=== PATIENT | male | born 1955 | race Caucasian/White ===

== ENCOUNTER 2017-03-19 11:27 | Emergency (ER) | payer OTHER ==
[~2017-03-19] VITALS: Ht 182.9 cm; Wt 106.6 kg
[~2017-03-19 11:27] MED LIST: ALBU90OI INH; ALBU90OI61 INH; AMLO10 PO; AMLO5 PO; ASPI81CH PO; ATOR40TA PO; BENZ100A PO; BIOTIN5000 MCG PO; CHOL10002 PO; CLON.1 PO; CLOP75 PO; CYAN500 PO; CYCL10 PO; DOXA1 PO; DOXA4 PO; ERYT.5TO OU; Esgic Tablet1 EACH PO; FAMO20 PO; FEBU40TA PO; FURO40 PO; GABA600; GABA600 PO; HYDACE10B PO; HYDCHL12.5 PO; HYDMOR2 PO; Hair, Skin & N1 EACH PO; IBUP400 PO; INDO75CR PO; LABE200 PO; LISI20 PO; LISI5 PO; MECL25 PO; META800 PO; METO100ER PO; METPRE4DP PO; NAPR500 PO; NEBI10 PO; NITR.4SL SL; Nifedical Xl60 MG PO; ONDA4 PO; ONDA4ODT; OXYACE5T PO; Omeprazole20 M1 PO; PRAM.5 PO; PRED20 PO; PRED5 PO; PREG75 PO; PROACE100 PO; Poly-Iron150 MG PO; Robaxin-750750 MG PO; Roxicodone5 MG PO; SIMV40 PO; SULTRIDS PO; TIOT18 INH; Ventolin5 MG/1 ML INH
[2017-03-19 12:02] LABS: BASOPHILS ABSOLUTE AUTO 0.04 K/mm3 (0.00-0.23); BASOPHILS PERCENT AUTO 0 % (0-2); EOSINOPHILS PERCENT AUTO 2 % (0-6); Hematocrit 37.3 % (37.0-53.0); IMMATURE GRAN ABSOLUTE AUTO 0.04 K/mm3 (0.00-0.10); IMMATURE GRAN PERCENT AUTO 0 % (0-1); LYMPHOCYTES ABSOLUTE AUTO 1.66 K/mm3 (0.84-5.20); LYMPHOCYTES PERCENT AUTO 18 % (21-46); MONOCYTES ABSOLUTE AUTO 0.56 K/mm3 (0.16-1.47); MONOCYTES PERCENT AUTO 6 % (4-13); Mean Corpuscular HGB 26.7 pg (26.0-34.0); Mean Corpuscular HGB Conc 32.2 g/dL (31.5-36.5); Mean Corpuscular Volume 83 fL (80-100); Mean Platelet Volume 9.7 fL (9.1-12.4); NEUTROPHILS ABSOLUTE AUTO 6.92 K/mm3 (1.96-9.15); NEUTROPHILS PERCENT AUTO 74 % (41-73); Platelet Count 227 K/mm3 (150-400); RDW Coefficient Variation 17.9 % (11.7-14.2); RDW Standard Deviation 54.9 fL (35.1-46.3); Red Blood Cell Count 4.49 M/mm3 (4.30-5.90); White Blood Cell Count 9.42 K/mm3 (4.00-11.30)
[2017-03-19 12:23] LABS: Alanine Aminotransfer (ALT/SGP 27 U/L (12-78); Albumin, Blood 3.9 g/dL (3.4-5.0); Albumin/Globulin Ratio 1.1 (0.8-1.8); Alk Phos 152 U/L (50-136); Anion Gap 5 mmol/L (6-16); Aspartate Aminotrans (AST/SGOT 21 U/L (12-37); Bilirubin, Total 0.4 mg/dL (0.1-1.0); Blood Urea Nitrogen 22 mg/dL (8-24); Bun/Creatinine Ratio 18.3 (12.0-20.0); CO2, Blood 26 mmol/L (21-32); Calcium, Blood 8.6 mg/dL (8.5-10.1); Chloride, Blood 110 mmol/L (98-108); Globulin, Blood 3.6 g/dL (2.2-4.0); Glomerular Filtration Rate >60 (60-); Glucose, Blood 98 mg/dL (70-99); Potassium, Blood 4.5 mmol/L (3.5-5.5); Sodium, Blood 141 mmol/L (136-145); Total Protein, Blood 7.5 g/dL (6.4-8.2); Troponin I <0.015 ng/mL (0.000-0.040)
[2017-03-19] MEDS ORDERED: FURO40 PO (12:53)
[2017-03-19] MEDS ORDERED: POTCHL10ER PO (12:54)
[2017-03-19] MEDS ORDERED: ERGO400 PO (12:55)
[2018-01-11] MEDS ORDERED: METO100ER PO (20:44)
[2018-01-11] MEDS ORDERED: PRAM.125 PO (20:44)
[2018-01-11] MEDS ORDERED: Omeprazole20 M1 PO (20:44)
[2018-01-11] MEDS ORDERED: PANT40 PO (20:44)
[2018-01-11] MEDS ORDERED: CLOP75 PO (20:44)
[2018-01-11] MEDS ORDERED: TIOT18 INH (20:45)
[2018-01-11] MEDS ORDERED: PRAM.5 PO (20:45)
[2018-01-11] MEDS ORDERED: GABA100 PO (20:46)
[2018-01-11] MEDS ORDERED: LORA2 PO (21:19)
[2018-01-14] MEDS ORDERED: ROPI.25 PO (13:22)
== END 2017-03-19 13:24 | disposition home or self-care (01) ==
LOC: ER 11:27
PROVIDERS: Physician Assistant
DX: R07.9 Chest pain, unspecified (principal); I25.2 Old myocardial infarction; Z90.5 Acquired absence of kidney; Z88.5 Allergy status to narcotic agent; Z88.8 Allergy status to other drugs, medicaments and biological substances; Z79.899 Other long term (current) drug therapy
CPT/HCPCS: 71045; 80053; 83880; 84484; 85025; 93005; 93010; 96374; 99284; J2405

== ENCOUNTER 2017-04-03 09:27 | Emergency (ER) | payer OTHER ==
[~2017-04-03] VITALS: Ht 182.9 cm; Wt 111.1 kg
[~2017-04-03 09:27] MED LIST changes: +ERGO400 PO; +POTCHL10ER PO
[2017-04-03] MEDS ORDERED: METO100ER PO ×2 (10:14→12:57)
[2017-04-03 10:26] LABS: Alanine Aminotransfer (ALT/SGP 25 U/L (12-78); Albumin, Blood 3.9 g/dL (3.4-5.0); Albumin/Globulin Ratio 1.1 (0.8-1.8); Alk Phos 159 U/L (50-136); Anion Gap 9 mmol/L (6-16); Aspartate Aminotrans (AST/SGOT 22 U/L (12-37); Bilirubin, Total 0.3 mg/dL (0.1-1.0); Blood Urea Nitrogen 23 mg/dL (8-24); Bun/Creatinine Ratio 19.7 (12.0-20.0); CO2, Blood 25 mmol/L (21-32); Calcium, Blood 8.9 mg/dL (8.5-10.1); Chloride, Blood 108 mmol/L (98-108); Creatinine, Blood 1.17 mg/dL (0.60-1.20); Globulin, Blood 3.5 g/dL (2.2-4.0); Glomerular Filtration Rate >60 (60-); Glucose, Blood 117 mg/dL (70-99); Magnesium, Blood 2.1 mg/dL (1.6-2.4); Potassium, Blood 3.8 mmol/L (3.5-5.5); Sodium, Blood 142 mmol/L (136-145); Total Protein, Blood 7.4 g/dL (6.4-8.2); Troponin I <0.015 ng/mL (0.000-0.040)
[2017-04-03 10:38] LABS: International Normalized Ratio 1.07; Prothrombin Time Results 11.1 Sec (9.7-11.5)
[2017-04-03 11:24] LABS: Source, Urine Catheter
[2017-04-03 11:44] LABS: Bilirubin, Urine Neg (Neg); Blood, Urine Neg (Neg); Glucose Qualitative, Urine Neg (Neg); Ketones, Urine Neg (Neg); Leukocyte Esterase, Urine Neg (Neg); Nitrite, Urine Neg (Neg); Protein, Urine Neg (Neg); Specific Gravity, Urine 1.015 (1.003-1.022); Urobilinogen, Urine NORM (Normal)
[2017-04-03 12:19] LABS: Appearance, Urine Clear (Clear); Color, Urine Yellow (P-Yellow)
[2017-04-03 12:19] LABS: BASOPHILS ABSOLUTE AUTO 0.05 K/mm3 (0.00-0.23); BASOPHILS PERCENT AUTO 1 % (0-2); EOSINOPHILS PERCENT AUTO 3 % (0-6); Hematocrit 38.3 % (37.0-53.0); Hemoglobin 12.2 g/dL (13.5-17.5); IMMATURE GRAN ABSOLUTE AUTO 0.02 K/mm3 (0.00-0.10); IMMATURE GRAN PERCENT AUTO 0 % (0-1); LYMPHOCYTES ABSOLUTE AUTO 1.73 K/mm3 (0.84-5.20); LYMPHOCYTES PERCENT AUTO 22 % (21-46); MONOCYTES ABSOLUTE AUTO 0.62 K/mm3 (0.16-1.47); MONOCYTES PERCENT AUTO 8 % (4-13); Mean Corpuscular HGB 26.8 pg (26.0-34.0); Mean Corpuscular HGB Conc 31.9 g/dL (31.5-36.5); Mean Corpuscular Volume 84 fL (80-100); Mean Platelet Volume 9.9 fL (9.1-12.4); NEUTROPHILS ABSOLUTE AUTO 5.43 K/mm3 (1.96-9.15); NEUTROPHILS PERCENT AUTO 68 % (41-73); Platelet Count 212 K/mm3 (150-400); RDW Coefficient Variation 17.3 % (11.7-14.2); RDW Standard Deviation 53.7 fL (35.1-46.3); Red Blood Cell Count 4.55 M/mm3 (4.30-5.90); White Blood Cell Count 8.05 K/mm3 (4.00-11.30)
[2017-04-03] MEDS ORDERED: AMLO10 PO (12:57)
[2017-04-03] MEDS ORDERED: METO2.5 PO (12:57)
[2017-04-03] MEDS ORDERED: LOSARTAN POTAS100 MG PO (12:57)
[2018-01-11] MEDS ORDERED: CLOP75 PO (20:44)
[2018-01-11] MEDS ORDERED: Omeprazole20 M1 PO (20:44)
[2018-01-11] MEDS ORDERED: PRAM.125 PO (20:44)
[2018-01-11] MEDS ORDERED: PANT40 PO (20:44)
[2018-01-11] MEDS ORDERED: METO100ER PO (20:44)
[2018-01-11] MEDS ORDERED: TIOT18 INH (20:45)
[2018-01-11] MEDS ORDERED: PRAM.5 PO (20:45)
[2018-01-11] MEDS ORDERED: GABA100 PO (20:46)
[2018-01-11] MEDS ORDERED: LORA2 PO (21:19)
[2018-01-14] MEDS ORDERED: ROPI.25 PO (13:22)
== END 2017-04-03 13:29 | disposition home or self-care (01) ==
LOC: ER 09:27
PROVIDERS: Emergency Medicine
DX: I13.0 Hypertensive heart and chronic kidney disease with heart failure and stage 1 through stage 4 chronic kidney disease, or unspecified chronic kidney disease (principal); E11.22 Type 2 diabetes mellitus with diabetic chronic kidney disease; N18.9 Chronic kidney disease, unspecified; I50.9 Heart failure, unspecified; R60.0 Localized edema; Z88.5 Allergy status to narcotic agent; Z88.8 Allergy status to other drugs, medicaments and biological substances; Z79.899 Other long term (current) drug therapy; K21.9 Gastro-esophageal reflux disease without esophagitis; F17.210 Nicotine dependence, cigarettes, uncomplicated
CPT/HCPCS: 36415; 71046; 80053; 81003; 83735; 83880; 84484; 85025; 85610; 93005; 93010; 96374; 99284; J1940

== ENCOUNTER → 2017-04-24 | Outpatient (CLI) | payer OTHER ==
[~2017-04-24] MED LIST changes: +GABA100 PO; +LORA2 PO; +LOSARTAN POTAS100 MG PO; +METO2.5 PO; +PANT40 PO; +PRAM.125 PO; +ROPI.25 PO
[2017-04-24 16:23] LABS: Protein, Urine Random 11.8 mg/dL (0.0-11.9)
[2017-04-24 16:28] LABS: Creatinine, Urine Random 50.8 mg/dL (27.00-270.00); Protein/Creat Ratio, Ur Random 0.2
== END | disposition home or self-care (01) ==
LOC: OLS 13:46
PROVIDERS: Internal Medicine
DX: N28.9 Disorder of kidney and ureter, unspecified (principal)
CPT/HCPCS: 82570; 84156

== ENCOUNTER → 2017-05-24 | Outpatient (CLI) | payer OTHER ==
[~2017-05-24] MED LIST changes: -GABA100 PO; -LORA2 PO; -PANT40 PO; -PRAM.125 PO; -ROPI.25 PO
[2017-05-24 12:41] LABS: BASOPHILS ABSOLUTE AUTO 0.04 K/mm3 (0.00-0.23); BASOPHILS PERCENT AUTO 0 % (0-2); EOSINOPHILS ABSOLUTE AUTO 0.17 K/mm3 (0.00-0.68); EOSINOPHILS PERCENT AUTO 2 % (0-6); Hematocrit 39.1 % (37.0-53.0); IMMATURE GRAN ABSOLUTE AUTO 0.03 K/mm3 (0.00-0.10); IMMATURE GRAN PERCENT AUTO 0 % (0-1); LYMPHOCYTES ABSOLUTE AUTO 1.55 K/mm3 (0.84-5.20); LYMPHOCYTES PERCENT AUTO 16 % (21-46); MONOCYTES ABSOLUTE AUTO 0.57 K/mm3 (0.16-1.47); MONOCYTES PERCENT AUTO 6 % (4-13); Mean Corpuscular HGB 27.3 pg (26.0-34.0); Mean Corpuscular HGB Conc 33.2 g/dL (31.5-36.5); Mean Corpuscular Volume 82 fL (80-100); Mean Platelet Volume 9.3 fL (9.1-12.4); NEUTROPHILS ABSOLUTE AUTO 7.32 K/mm3 (1.96-9.15); NEUTROPHILS PERCENT AUTO 76 % (41-73); Platelet Count 241 K/mm3 (150-400); RDW Coefficient Variation 16.4 % (11.7-14.2); RDW Standard Deviation 49.1 fL (35.1-46.3); Red Blood Cell Count 4.77 M/mm3 (4.30-5.90); White Blood Cell Count 9.68 K/mm3 (4.00-11.30)
[2017-05-24 12:51] LABS: Albumin, Blood 4.2 g/dL (3.4-5.0); Albumin/Globulin Ratio 1.1 (0.8-1.8); Bilirubin, Total 0.5 mg/dL (0.1-1.0); Calcium, Blood 9.5 mg/dL (8.5-10.1); Creatinine, Blood 1.84 mg/dL (0.60-1.20); Globulin, Blood 3.7 g/dL (2.2-4.0); Potassium, Blood 4.3 mmol/L (3.5-5.5); Total Protein, Blood 7.9 g/dL (6.4-8.2)
== END ==
LOC: LAB EV 12:35 → LAB SHORT 12:35
PROVIDERS: Physician Assistant Medical
DX: R10.84 Generalized abdominal pain (principal)
CPT/HCPCS: 80053; 83690; 85025

== ENCOUNTER → 2017-09-06 | Outpatient (CLI) | payer OTHER ==
[2017-09-06 13:33] LABS: Albumin, Blood 4.4 g/dL (3.4-5.0); Anion Gap 8 mmol/L (6-16); Blood Urea Nitrogen 50 mg/dL (8-24); Bun/Creatinine Ratio 23.3 (12.0-20.0); CO2, Blood 30 mmol/L (21-32); Calcium, Blood 9.4 mg/dL (8.5-10.1); Chloride, Blood 97 mmol/L (98-108); Creatinine, Blood 2.15 mg/dL (0.60-1.20); Glomerular Filtration Rate 33 (60-); Glucose, Blood 110 mg/dL (70-99); Phosphorus, Blood 5.1 mg/dL (2.5-4.9); Potassium, Blood 4.1 mmol/L (3.5-5.5); Sodium, Blood 135 mmol/L (136-145)
== END | disposition home or self-care (01) ==
LOC: LAB 12:26 → LAB SHORT 12:26
PROVIDERS: Internal Medicine
DX: N18.3 Chronic kidney disease, stage 3 (moderate) (principal)
CPT/HCPCS: 36415; 80069

== ENCOUNTER 2017-10-05 12:52 | Emergency (ER) | payer OTHER ==
[~2017-10-05] VITALS: Ht 182.9 cm; Wt 120.2 kg
[2017-10-05 14:35] LABS: BASOPHILS ABSOLUTE AUTO 0.04 K/mm3 (0.00-0.23); BASOPHILS PERCENT AUTO 0 % (0-2); EOSINOPHILS ABSOLUTE AUTO 0.13 K/mm3 (0.00-0.68); EOSINOPHILS PERCENT AUTO 1 % (0-6); Hematocrit 36.9 % (37.0-53.0); Hemoglobin 12.1 g/dL (13.5-17.5); IMMATURE GRAN ABSOLUTE AUTO 0.06 K/mm3 (0.00-0.10); IMMATURE GRAN PERCENT AUTO 1 % (0-1); LYMPHOCYTES ABSOLUTE AUTO 1.32 K/mm3 (0.84-5.20); LYMPHOCYTES PERCENT AUTO 13 % (21-46); MONOCYTES ABSOLUTE AUTO 0.78 K/mm3 (0.16-1.47); MONOCYTES PERCENT AUTO 8 % (4-13); Mean Corpuscular HGB 26.9 pg (26.0-34.0); Mean Corpuscular HGB Conc 32.8 g/dL (31.5-36.5); Mean Corpuscular Volume 82 fL (80-100); Mean Platelet Volume 9.3 fL (9.1-12.4); NEUTROPHILS ABSOLUTE AUTO 7.81 K/mm3 (1.96-9.15); NEUTROPHILS PERCENT AUTO 77 % (41-73); Platelet Count 221 K/mm3 (150-400); RDW Coefficient Variation 17.4 % (11.7-14.2); RDW Standard Deviation 51.6 fL (35.1-46.3); White Blood Cell Count 10.14 K/mm3 (4.00-11.30)
[2017-10-05 15:00] LABS: Alanine Aminotransfer (ALT/SGP 36 U/L (12-78); Albumin, Blood 3.6 g/dL (3.4-5.0); Alk Phos 136 U/L (50-136); Anion Gap 5 mmol/L (6-16); Aspartate Aminotrans (AST/SGOT 23 U/L (12-37); Bilirubin, Total 0.4 mg/dL (0.1-1.0); Blood Urea Nitrogen 24 mg/dL (8-24); Bun/Creatinine Ratio 17.3 (12.0-20.0); CO2, Blood 28 mmol/L (21-32); Calcium, Blood 8.9 mg/dL (8.5-10.1); Chloride, Blood 104 mmol/L (98-108); Creatinine, Blood 1.39 mg/dL (0.60-1.20); Globulin, Blood 3.5 g/dL (2.2-4.0); Glomerular Filtration Rate 55 (60-); Glucose, Blood 99 mg/dL (70-99); Potassium, Blood 4.3 mmol/L (3.5-5.5); Sodium, Blood 137 mmol/L (136-145); Total Protein, Blood 7.1 g/dL (6.4-8.2); Troponin I <0.015 ng/mL (0.000-0.040)
== END 2017-10-05 16:00 | disposition home or self-care (01) ==
LOC: ER 12:52
PROVIDERS: Emergency Medicine
DX: S80.211A Abrasion, right knee, initial encounter (principal); S80.812A Abrasion, left lower leg, initial encounter; R06.00 Dyspnea, unspecified; J44.9 Chronic obstructive pulmonary disease, unspecified; Z88.5 Allergy status to narcotic agent; Z88.8 Allergy status to other drugs, medicaments and biological substances; Z79.899 Other long term (current) drug therapy; Z79.51 Long term (current) use of inhaled steroids; W19.XXXA Unspecified fall, initial encounter
CPT/HCPCS: 36415; 71046; 73562-LT; 80053; 84484; 85025; 93005; 93010; 99284-25

== ENCOUNTER 2018-07-26 17:01 | Emergency (ER) | payer OTHER ==
[~2018-07-26] VITALS: Ht 185.4 cm; Wt 123.4 kg
[~2018-07-26 17:01] MED LIST changes: +GABA100 PO; +LORA2 PO; +PANT40 PO; +PRAM.125 PO; +ROPI.25 PO
[2018-07-26 17:26] LABS: BASOPHILS ABSOLUTE AUTO 0.04 K/mm3 (0.00-0.23); BASOPHILS PERCENT AUTO 0 % (0-2); EOSINOPHILS ABSOLUTE AUTO 0.11 K/mm3 (0.00-0.68); EOSINOPHILS PERCENT AUTO 1 % (0-6); Hematocrit 43.6 % (37.0-53.0); Hemoglobin 13.5 g/dL (13.5-17.5); IMMATURE GRAN ABSOLUTE AUTO 0.06 K/mm3 (0.00-0.10); IMMATURE GRAN PERCENT AUTO 0 % (0-1); LYMPHOCYTES ABSOLUTE AUTO 0.99 K/mm3 (0.84-5.20); LYMPHOCYTES PERCENT AUTO 7 % (21-46); MONOCYTES ABSOLUTE AUTO 1.27 K/mm3 (0.16-1.47); MONOCYTES PERCENT AUTO 9 % (4-13); Mean Corpuscular Volume 81 fL (80-100); Mean Platelet Volume 9.4 fL (9.1-12.4); NEUTROPHILS ABSOLUTE AUTO 12.43 K/mm3 (1.96-9.15); NEUTROPHILS PERCENT AUTO 84 % (41-73); Platelet Count 321 K/mm3 (150-400); RDW Coefficient Variation 21.6 % (11.7-14.2); RDW Standard Deviation 62.9 fL (35.1-46.3)
[2018-07-26 17:46] LABS: Albumin, Blood 4.1 g/dL (3.4-5.0); Albumin/Globulin Ratio 1.2 (0.8-1.8); Bilirubin, Total 0.4 mg/dL (0.1-1.0); Bun/Creatinine Ratio 14.8 (12.0-20.0); Calcium, Blood 9.1 mg/dL (8.5-10.1); Creatinine, Blood 1.35 mg/dL (0.60-1.20); Globulin, Blood 3.5 g/dL (2.2-4.0); Potassium, Blood 4.8 mmol/L (3.5-5.5); Total Protein, Blood 7.6 g/dL (6.4-8.2)
[2018-07-26] MEDS ORDERED: COMPAZINE10 MG PO (20:03)
[2018-07-26] MEDS ORDERED: Norco 5-325 Ta1 EACH PO (20:03)
[2018-07-27] MEDS ORDERED: Norco 5-325 Ta1 EACH PO (17:29)
== END 2018-07-26 22:48 | disposition home or self-care (01) ==
LOC: ER 17:01
PROVIDERS: Emergency Medicine
DX: R10.13 Epigastric pain (principal); I12.9 Hypertensive chronic kidney disease with stage 1 through stage 4 chronic kidney disease, or unspecified chronic kidney disease; N18.9 Chronic kidney disease, unspecified; M10.9 Gout, unspecified; J44.9 Chronic obstructive pulmonary disease, unspecified; I25.10 Atherosclerotic heart disease of native coronary artery without angina pectoris; K21.9 Gastro-esophageal reflux disease without esophagitis; G25.81 Restless legs syndrome; F17.210 Nicotine dependence, cigarettes, uncomplicated; Z79.899 Other long term (current) drug therapy; I47.2 Ventricular tachycardia
CPT/HCPCS: 36415; 74176; 80053; 83690; 85025; 93005; 93010; 96374; 96375; 96376; 99284-25; J1170; J2405

== ENCOUNTER 2018-10-18 10:38 | Emergency (ER) | payer MEDICARE ==
[~2018-10-18] VITALS: Ht 182.9 cm; Wt 122.5 kg
[~2018-10-18 10:38] MED LIST changes: +COMPAZINE10 MG PO; +Norco 5-325 Ta1 EACH PO
[2018-10-18 11:11] LABS: BASOPHILS PERCENT AUTO 1 % (0-2); EOSINOPHILS ABSOLUTE AUTO 0.57 K/mm3 (0.00-0.68); EOSINOPHILS PERCENT AUTO 4 % (0-6); Hematocrit 41.7 % (37.0-53.0); Hemoglobin 12.8 g/dL (13.5-17.5); IMMATURE GRAN ABSOLUTE AUTO 0.47 K/mm3 (0.00-0.10); IMMATURE GRAN PERCENT AUTO 3 % (0-1); LYMPHOCYTES ABSOLUTE AUTO 2.14 K/mm3 (0.84-5.20); LYMPHOCYTES PERCENT AUTO 14 % (21-46); MONOCYTES ABSOLUTE AUTO 0.86 K/mm3 (0.16-1.47); MONOCYTES PERCENT AUTO 6 % (4-13); Mean Corpuscular HGB 24.2 pg (26.0-34.0); Mean Corpuscular HGB Conc 30.7 g/dL (31.5-36.5); Mean Corpuscular Volume 79 fL (80-100); Mean Platelet Volume 9.5 fL (9.1-12.4); NEUTROPHILS ABSOLUTE AUTO 11.43 K/mm3 (1.96-9.15); NEUTROPHILS PERCENT AUTO 74 % (41-73); NRBC ABSOLUTE 0.03 K/mm3 (0.00-0.02); NRBC Auto 0.2 /100 WBC (0.0-0.2); Platelet Count 307 K/mm3 (150-400); RDW Coefficient Variation 19.6 % (11.7-14.2); RDW Standard Deviation 54.2 fL (35.1-46.3); Red Blood Cell Count 5.28 M/mm3 (4.30-5.90); White Blood Cell Count 15.57 K/mm3 (4.00-11.30)
[2018-10-18] MEDS ORDERED: PROAIR RESPICL90 MCG INH (11:19)
[2018-10-18] MEDS ORDERED: AMLO10 PO (11:20)
[2018-10-18 11:31] LABS: Troponin I <0.015 ng/mL (0.000-0.040)
[2018-10-18 11:37] LABS: Alanine Aminotransfer (ALT/SGP 32 U/L (12-78); Albumin, Blood 3.2 g/dL (3.4-5.0); Albumin/Globulin Ratio 0.9 (0.8-1.8); Alk Phos 134 U/L (50-136); Anion Gap 5 mmol/L (6-16); Aspartate Aminotrans (AST/SGOT 12 U/L (12-37); Bilirubin, Total 0.4 mg/dL (0.1-1.0); Blood Urea Nitrogen 22 mg/dL (8-24); CO2, Blood 29 mmol/L (21-32); Calcium, Blood 8.7 mg/dL (8.5-10.1); Chloride, Blood 105 mmol/L (98-108); Globulin, Blood 3.6 g/dL (2.2-4.0); Glomerular Filtration Rate >60 (60-); Glucose, Blood 106 mg/dL (70-99); Potassium, Blood 4.3 mmol/L (3.5-5.5); Sodium, Blood 139 mmol/L (136-145); Total Protein, Blood 6.8 g/dL (6.4-8.2)
== END 2018-10-18 13:54 | disposition left against medical advice (07) ==
LOC: ER 10:38
PROVIDERS: Emergency Medicine
DX: J90 Pleural effusion, not elsewhere classified (principal); K21.9 Gastro-esophageal reflux disease without esophagitis; J44.9 Chronic obstructive pulmonary disease, unspecified; I12.9 Hypertensive chronic kidney disease with stage 1 through stage 4 chronic kidney disease, or unspecified chronic kidney disease; N18.9 Chronic kidney disease, unspecified; F17.210 Nicotine dependence, cigarettes, uncomplicated; Z88.5 Allergy status to narcotic agent; Z88.8 Allergy status to other drugs, medicaments and biological substances; Z79.899 Other long term (current) drug therapy; Z79.02 Long term (current) use of antithrombotics/antiplatelets
CPT/HCPCS: 36415; 71046; 71260; 80053; 83880; 84484; 85025; 93005; 93010; 99285-25; Q9967

== ENCOUNTER 2020-05-25 11:41 | Emergency (ER) | payer MEDICARE ==
[~2020-05-25] VITALS: Ht 182.9 cm; Wt 122.5 kg
[~2020-05-25 11:41] MED LIST changes: +Aldactone100 MG PO; +Aspir 8181 MG PO; +DULO30 PO; +FERSU300 PO; +HYDRA25 PO; +LOSA50 PO; +PROAIR RESPICL90 MCG INH; +PROC5 PO
[2020-05-25 12:26] LABS: BASOPHILS ABSOLUTE AUTO 0.05 K/mm3 (0.00-0.23); BASOPHILS PERCENT AUTO 1 % (0-2); EOSINOPHILS ABSOLUTE AUTO 0.14 K/mm3 (0.00-0.68); EOSINOPHILS PERCENT AUTO 2 % (0-6); Hematocrit 43.5 % (37.0-53.0); Hemoglobin 14.8 g/dL (13.5-17.5); IMMATURE GRAN ABSOLUTE AUTO 0.05 K/mm3 (0.00-0.10); IMMATURE GRAN PERCENT AUTO 1 % (0-1); LYMPHOCYTES ABSOLUTE AUTO 1.18 K/mm3 (0.84-5.20); LYMPHOCYTES PERCENT AUTO 13 % (21-46); MONOCYTES ABSOLUTE AUTO 0.53 K/mm3 (0.16-1.47); MONOCYTES PERCENT AUTO 6 % (4-13); Mean Corpuscular HGB 29.2 pg (26.0-34.0); Mean Corpuscular Volume 86 fL (80-100); Mean Platelet Volume 10.1 fL (9.1-12.4); NEUTROPHILS PERCENT AUTO 79 % (41-73); Platelet Count 176 K/mm3 (150-400); RDW Standard Deviation 43.3 fL (35.1-46.3); Red Blood Cell Count 5.07 M/mm3 (4.30-5.90); White Blood Cell Count 9.35 K/mm3 (4.00-11.30)
[2020-05-25 12:50] LABS: Alanine Aminotransfer (ALT/SGP 33 U/L (12-78); Albumin, Blood 3.5 g/dL (3.4-5.0); Albumin/Globulin Ratio 0.9 (0.8-1.8); Alk Phos 174 U/L (50-136); Anion Gap 7 mmol/L (6-16); Aspartate Aminotrans (AST/SGOT 21 U/L (12-37); Bilirubin, Total 0.5 mg/dL (0.1-1.0); Blood Urea Nitrogen 23 mg/dL (8-24); Bun/Creatinine Ratio 19.8 (12.0-20.0); CO2, Blood 27 mmol/L (21-32); Chloride, Blood 99 mmol/L (98-108); Creatinine, Blood 1.16 mg/dL (0.60-1.20); Globulin, Blood 3.7 g/dL (2.2-4.0); Glomerular Filtration Rate >60 (60-); Glucose, Blood 412 mg/dL (70-99); Potassium, Blood 4.9 mmol/L (3.5-5.5); Sodium, Blood 133 mmol/L (136-145); Total Protein, Blood 7.2 g/dL (6.4-8.2); Troponin I <0.015 ng/mL (0.000-0.040)
[2020-05-25] MEDS ORDERED: OMEPRAZOLE MAGN20 MG PO (15:00)
== END 2020-05-25 15:12 | disposition home or self-care (01) ==
LOC: ER 11:41
PROVIDERS: Physician Assistant
DX: R10.13 Epigastric pain (principal); I25.10 Atherosclerotic heart disease of native coronary artery without angina pectoris; J44.9 Chronic obstructive pulmonary disease, unspecified; K21.9 Gastro-esophageal reflux disease without esophagitis; F17.210 Nicotine dependence, cigarettes, uncomplicated; Z88.5 Allergy status to narcotic agent; Z88.8 Allergy status to other drugs, medicaments and biological substances; Z79.899 Other long term (current) drug therapy
CPT/HCPCS: 36415; 71046; 80053; 84484; 85025; 93005; 93010; 99285-25; A9270

== ENCOUNTER 2020-05-30 11:59 | Emergency (ER) | payer MEDICARE ==
[~2020-05-30] VITALS: Ht 182.9 cm; Wt 117.0 kg
[~2020-05-30 11:59] MED LIST changes: -OMEP20ER PO; -POTCHL20ER PO; -SPIR50 PO
[2020-05-30] MEDS ORDERED: PROC5 PO (14:19)
[2020-05-30] MEDS ORDERED: SPIR50 PO (14:19)
[2020-05-30] MEDS ORDERED: OMEP20ER PO (14:19)
[2020-05-30] MEDS ORDERED: METO100ER PO (14:19)
[2020-05-30] MEDS ORDERED: POTCHL20ER PO (14:20)
[2020-05-30] MEDS ORDERED: PRAM.5 PO (14:20)
[2020-05-30] MEDS ORDERED: AMLO5 PO (14:20)
[2020-05-30] MEDS ORDERED: TIOT18 INH (14:21)
[2020-05-30] MEDS ORDERED: NITR.4SL SL (14:21)
[2020-05-30] MEDS ORDERED: ALBU90OI INH (14:21)
[2020-05-30] MEDS ORDERED: ATOR40TA PO (14:21)
== END 2020-05-30 15:36 | disposition home or self-care (01) ==
LOC: ER 11:59
DX: E11.65 Type 2 diabetes mellitus with hyperglycemia (principal); E11.22 Type 2 diabetes mellitus with diabetic chronic kidney disease; I12.9 Hypertensive chronic kidney disease with stage 1 through stage 4 chronic kidney disease, or unspecified chronic kidney disease; N18.9 Chronic kidney disease, unspecified; J44.9 Chronic obstructive pulmonary disease, unspecified; I25.10 Atherosclerotic heart disease of native coronary artery without angina pectoris; K21.9 Gastro-esophageal reflux disease without esophagitis; F17.200 Nicotine dependence, unspecified, uncomplicated; Z79.4 Long term (current) use of insulin; Z79.899 Other long term (current) drug therapy
CPT/HCPCS: 82947; 93005; 93010; 99284-25; J1815

== ENCOUNTER → 2020-05-30 | Outpatient (CLI) | payer MEDICARE ==
[~2020-05-30] MED LIST changes: +OMEP20ER PO; +OMEPRAZOLE MAGN20 MG PO; +POTCHL20ER PO; +SPIR50 PO
[2020-05-30 11:26] LABS: BASOPHILS ABSOLUTE AUTO 0.04 K/mm3 (0.00-0.23); BASOPHILS PERCENT AUTO 0 % (0-2); EOSINOPHILS ABSOLUTE AUTO 0.12 K/mm3 (0.00-0.68); EOSINOPHILS PERCENT AUTO 1 % (0-6); Hematocrit 42.8 % (37.0-53.0); Hemoglobin 14.8 g/dL (13.5-17.5); IMMATURE GRAN ABSOLUTE AUTO 0.06 K/mm3 (0.00-0.10); IMMATURE GRAN PERCENT AUTO 1 % (0-1); LYMPHOCYTES ABSOLUTE AUTO 1.23 K/mm3 (0.84-5.20); LYMPHOCYTES PERCENT AUTO 14 % (21-46); MONOCYTES ABSOLUTE AUTO 0.52 K/mm3 (0.16-1.47); MONOCYTES PERCENT AUTO 6 % (4-13); Mean Corpuscular HGB 29.7 pg (26.0-34.0); Mean Corpuscular HGB Conc 34.6 g/dL (31.5-36.5); Mean Corpuscular Volume 86 fL (80-100); Mean Platelet Volume 10.2 fL (9.1-12.4); NEUTROPHILS ABSOLUTE AUTO 7.03 K/mm3 (1.96-9.15); NEUTROPHILS PERCENT AUTO 78 % (41-73); Platelet Count 186 K/mm3 (150-400); RDW Coefficient Variation 14.5 % (11.7-14.2); RDW Standard Deviation 44.4 fL (35.1-46.3); Red Blood Cell Count 4.99 M/mm3 (4.30-5.90)
[2020-05-30 11:35] LABS: Albumin, Blood 3.4 g/dL (3.4-5.0); Albumin/Globulin Ratio 0.9 (0.8-1.8); Bilirubin, Total 0.4 mg/dL (0.1-1.0); Bun/Creatinine Ratio 16.1 (12.0-20.0); Calcium, Blood 8.7 mg/dL (8.5-10.1); Creatinine, Blood 1.61 mg/dL (0.60-1.20); Globulin, Blood 3.7 g/dL (2.2-4.0); Potassium, Blood 4.8 mmol/L (3.5-5.5); Total Protein, Blood 7.1 g/dL (6.4-8.2)
== END ==
LOC: LAB SHORT 11:16
PROVIDERS: General Practice
DX: E11.65 Type 2 diabetes mellitus with hyperglycemia (principal)
CPT/HCPCS: 80053; 82150; 85025

== ENCOUNTER 2020-08-20 16:24 | Emergency (ER) | payer MEDICARE ==
[~2020-08-20] VITALS: Ht 180.3 cm; Wt 99.8 kg
[~2020-08-20 16:24] MED LIST changes: +OMEP20ER PO; +POTCHL20ER PO; +SPIR50 PO
[2020-08-20 16:47] LABS: BASOPHILS ABSOLUTE AUTO 0.05 K/mm3 (0.00-0.23); BASOPHILS PERCENT AUTO 1 % (0-2); EOSINOPHILS ABSOLUTE AUTO 0.21 K/mm3 (0.00-0.68); EOSINOPHILS PERCENT AUTO 2 % (0-6); Hematocrit 41.9 % (37.0-53.0); Hemoglobin 13.8 g/dL (13.5-17.5); IMMATURE GRAN ABSOLUTE AUTO 0.05 K/mm3 (0.00-0.10); IMMATURE GRAN PERCENT AUTO 1 % (0-1); LYMPHOCYTES ABSOLUTE AUTO 1.36 K/mm3 (0.84-5.20); LYMPHOCYTES PERCENT AUTO 15 % (21-46); MONOCYTES ABSOLUTE AUTO 0.58 K/mm3 (0.16-1.47); MONOCYTES PERCENT AUTO 7 % (4-13); Mean Corpuscular HGB 29.4 pg (26.0-34.0); Mean Corpuscular HGB Conc 32.9 g/dL (31.5-36.5); Mean Corpuscular Volume 89 fL (80-100); Mean Platelet Volume 9.9 fL (9.1-12.4); NEUTROPHILS ABSOLUTE AUTO 6.57 K/mm3 (1.96-9.15); NEUTROPHILS PERCENT AUTO 74 % (41-73); Platelet Count 203 K/mm3 (150-400); RDW Coefficient Variation 13.8 % (11.7-14.2); RDW Standard Deviation 44.5 fL (35.1-46.3); Red Blood Cell Count 4.69 M/mm3 (4.30-5.90); White Blood Cell Count 8.82 K/mm3 (4.00-11.30)
[2020-08-20 17:07] LABS: International Normalized Ratio 1.04; Prothrombin Time Results 11.2 Sec (9.7-11.5)
[2020-08-20 17:16] LABS: Albumin, Blood 3.2 g/dL (3.4-5.0); Albumin/Globulin Ratio 0.8 (0.8-1.8); Bilirubin, Total 0.2 mg/dL (0.1-1.0); Bun/Creatinine Ratio 13.8 (12.0-20.0); Calcium, Blood 8.7 mg/dL (8.5-10.1); Creatinine, Blood 1.3 mg/dL (0.60-1.20); Globulin, Blood 3.9 g/dL (2.2-4.0); Potassium, Blood 4.2 mmol/L (3.5-5.5); Total Protein, Blood 7.1 g/dL (6.4-8.2)
== END 2020-08-20 18:02 | disposition home or self-care (01) ==
LOC: ER 16:24
PROVIDERS: Emergency Medicine
DX: G43.809 Other migraine, not intractable, without status migrainosus (principal); I12.9 Hypertensive chronic kidney disease with stage 1 through stage 4 chronic kidney disease, or unspecified chronic kidney disease; N18.9 Chronic kidney disease, unspecified; J44.9 Chronic obstructive pulmonary disease, unspecified; Z79.899 Other long term (current) drug therapy; Z88.5 Allergy status to narcotic agent; Z88.8 Allergy status to other drugs, medicaments and biological substances
CPT/HCPCS: 70450; 70496; 70498; 71045; 80053; 85025; 85610; 85730; 93005; 93010; 99285-25; A9270; Q3014; Q9967

== ENCOUNTER 2020-11-03 18:06 | Emergency (ER) | payer MEDICARE ==
[~2020-11-03] VITALS: Ht 182.9 cm; Wt 117.9 kg
== END 2020-11-03 20:52 | disposition left against medical advice (07) ==
LOC: ER 18:06
DX: Z53.21 Procedure and treatment not carried out due to patient leaving prior to being seen by health care provider (principal)

== ENCOUNTER 2021-01-14 11:10 | Emergency (ER) | payer MEDICARE ==
[~2021-01-14] VITALS: Ht 182.9 cm; Wt 125.6 kg
[2021-01-14 12:00] LABS: BASOPHILS ABSOLUTE AUTO 0.04 K/mm3 (0.00-0.23); BASOPHILS PERCENT AUTO 1 % (0-2); EOSINOPHILS ABSOLUTE AUTO 0.12 K/mm3 (0.00-0.68); EOSINOPHILS PERCENT AUTO 1 % (0-6); Hematocrit 42.5 % (37.0-53.0); Hemoglobin 13.5 g/dL (13.5-17.5); IMMATURE GRAN PERCENT AUTO 1 % (0-1); LYMPHOCYTES ABSOLUTE AUTO 1.16 K/mm3 (0.84-5.20); LYMPHOCYTES PERCENT AUTO 13 % (21-46); MONOCYTES PERCENT AUTO 7 % (4-13); Mean Corpuscular HGB 28.7 pg (26.0-34.0); Mean Corpuscular HGB Conc 31.8 g/dL (31.5-36.5); Mean Corpuscular Volume 90 fL (80-100); Mean Platelet Volume 9.6 fL (9.1-12.4); NEUTROPHILS ABSOLUTE AUTO 6.74 K/mm3 (1.96-9.15); NEUTROPHILS PERCENT AUTO 77 % (41-73); Platelet Count 185 K/mm3 (150-400); RDW Coefficient Variation 15.2 % (11.7-14.2); RDW Standard Deviation 49.9 fL (35.1-46.3); White Blood Cell Count 8.76 K/mm3 (4.00-11.30)
[2021-01-14 12:30] LABS: Base Excess Venous -2.1 mmol/L; Bicarbonate Venous 22.6 mmol/L (24.0-30.0); PCO2 Venous 42.7 mmHg (38-42); PO2 Venous 159 mmHg (38-42); pH Blood Venous 7.35 (7.34-7.37)
[2021-01-14 12:33] LABS: Alanine Aminotransfer (ALT/SGP 35 U/L (12-78); Albumin, Blood 3.3 g/dL (3.4-5.0); Albumin/Globulin Ratio 0.9 (0.8-1.8); Alk Phos 124 U/L (50-136); Anion Gap 8 mmol/L (6-16); Aspartate Aminotrans (AST/SGOT 21 U/L (12-37); Bilirubin, Total 0.3 mg/dL (0.1-1.0); Blood Urea Nitrogen 20 mg/dL (8-24); Bun/Creatinine Ratio 15.9 (12.0-20.0); CO2, Blood 26 mmol/L (21-32); Calcium, Blood 9.2 mg/dL (8.5-10.1); Chloride, Blood 106 mmol/L (98-108); Creatinine, Blood 1.26 mg/dL (0.60-1.20); Globulin, Blood 3.6 g/dL (2.2-4.0); Glomerular Filtration Rate 57 (60-); Glucose, Blood 228 mg/dL (70-99); Magnesium, Blood 2.1 mg/dL (1.6-2.4); Sodium, Blood 140 mmol/L (136-145); Total Protein, Blood 6.9 g/dL (6.4-8.2); Troponin I <0.015 ng/mL (0.000-0.040)
[2021-01-14 12:47] LABS: Influenza A, PCR NEGATIVE (NEGATIVE); Influenza B, PCR NEGATIVE (NEGATIVE); Resp Syncytial Virus, PCR NEGATIVE (NEGATIVE); SARS-Cov-2 (COVID-19) PCR, MMC NEGATIVE (NEGATIVE)
[2021-01-14] MEDS ORDERED: PRED20 PO (14:30)
[2021-01-14] MEDS ORDERED: DOXY100 PO (14:30)
[2021-01-14] MEDS ORDERED: IPRAT-ALBUT 0.5-3 ML INH (14:30)
== END 2021-01-14 14:25 | disposition home or self-care (01) ==
LOC: ER 11:10
PROVIDERS: Student in an Organized Health Care Education/Training Program
DX: J44.1 Chronic obstructive pulmonary disease with (acute) exacerbation (principal); Z88.5 Allergy status to narcotic agent; Z88.8 Allergy status to other drugs, medicaments and biological substances; Z79.899 Other long term (current) drug therapy; I12.9 Hypertensive chronic kidney disease with stage 1 through stage 4 chronic kidney disease, or unspecified chronic kidney disease; M10.9 Gout, unspecified; N18.9 Chronic kidney disease, unspecified; K21.9 Gastro-esophageal reflux disease without esophagitis; G47.33 Obstructive sleep apnea (adult) (pediatric); F17.210 Nicotine dependence, cigarettes, uncomplicated
CPT/HCPCS: 0241U; 36415; 71045; 80053; 82803; 83735; 83880; 84145; 84484; 85025; 93005; 93010; 94640; 99284-25; A9270; J7512

== ENCOUNTER 2021-04-03 01:09 | Emergency (ER) | payer MEDICARE ==
[~2021-04-03] VITALS: Ht 182.9 cm; Wt 122.5 kg
[~2021-04-03 01:09] MED LIST changes: +DOXY100 PO; +IPRAT-ALBUT 0.5-3 ML INH
== END 2021-04-03 02:57 | disposition home or self-care (01) ==
LOC: ER 01:09
DX: M54.41 Lumbago with sciatica, right side (principal); I12.9 Hypertensive chronic kidney disease with stage 1 through stage 4 chronic kidney disease, or unspecified chronic kidney disease; N18.9 Chronic kidney disease, unspecified; I25.10 Atherosclerotic heart disease of native coronary artery without angina pectoris; J44.9 Chronic obstructive pulmonary disease, unspecified; K21.9 Gastro-esophageal reflux disease without esophagitis; G47.33 Obstructive sleep apnea (adult) (pediatric); Z86.711 Personal history of pulmonary embolism; Z86.718 Personal history of other venous thrombosis and embolism; F17.210 Nicotine dependence, cigarettes, uncomplicated; Z88.5 Allergy status to narcotic agent; Z88.8 Allergy status to other drugs, medicaments and biological substances; Z79.899 Other long term (current) drug therapy
CPT/HCPCS: J1885

== ENCOUNTER → 2021-05-28 | Outpatient (CLI) | payer MEDICARE ==
[2021-05-28 12:50] LABS: Creatinine, Urine Random 96.9 mg/dL (27.00-270.00); Protein, Urine Random 143.4 mg/dL (0.0-11.9); Protein/Creat Ratio, Ur Random 1.5
== END | disposition home or self-care (01) ==
LOC: LAB 10:27 → LAB SHORT 10:27
PROVIDERS: Internal Medicine Nephrology
DX: N18.31 Chronic kidney disease, stage 3a (principal)
CPT/HCPCS: 82570; 84156

== ENCOUNTER 2021-07-13 12:35 | Emergency (ER) | payer MEDICARE ==
[~2021-07-13] VITALS: Ht 182.9 cm; Wt 124.3 kg
[2021-07-13 14:36] LABS: BASOPHILS ABSOLUTE AUTO 0.05 K/mm3 (0.00-0.23); BASOPHILS PERCENT AUTO 0 % (0-2); EOSINOPHILS ABSOLUTE AUTO 0.19 K/mm3 (0.00-0.68); EOSINOPHILS PERCENT AUTO 2 % (0-6); Hematocrit 46.8 % (37.0-53.0); Hemoglobin 14.9 g/dL (13.5-17.5); IMMATURE GRAN ABSOLUTE AUTO 0.27 K/mm3 (0.00-0.10); IMMATURE GRAN PERCENT AUTO 2 % (0-1); LYMPHOCYTES PERCENT AUTO 11 % (21-46); MONOCYTES ABSOLUTE AUTO 0.65 K/mm3 (0.16-1.47); MONOCYTES PERCENT AUTO 6 % (4-13); Mean Corpuscular HGB 28.5 pg (26.0-34.0); Mean Corpuscular HGB Conc 31.8 g/dL (31.5-36.5); Mean Corpuscular Volume 90 fL (80-100); Mean Platelet Volume 10.7 fL (9.1-12.4); NEUTROPHILS ABSOLUTE AUTO 8.85 K/mm3 (1.96-9.15); NEUTROPHILS PERCENT AUTO 79 % (41-73); Platelet Count 206 K/mm3 (150-400); RDW Coefficient Variation 14.7 % (11.7-14.2); Red Blood Cell Count 5.22 M/mm3 (4.30-5.90); White Blood Cell Count 11.21 K/mm3 (4.00-11.30)
[2021-07-13 14:48] LABS: Albumin, Blood 3.1 g/dL (3.4-5.0); Albumin/Globulin Ratio 0.8 (0.8-1.8); Bilirubin, Total 0.6 mg/dL (0.1-1.0); Bun/Creatinine Ratio 20.8 (12.0-20.0); Calcium, Blood 8.7 mg/dL (8.5-10.1); Creatinine, Blood 1.3 mg/dL (0.60-1.20); Globulin, Blood 3.7 g/dL (2.2-4.0); Potassium, Blood 4.2 mmol/L (3.5-5.5); Total Protein, Blood 6.8 g/dL (6.4-8.2)
== END 2021-07-13 17:31 | disposition home or self-care (01) ==
LOC: ER 12:35
PROVIDERS: Student in an Organized Health Care Education/Training Program
DX: R06.02 Shortness of breath (principal); I11.0 Hypertensive heart disease with heart failure; N18.9 Chronic kidney disease, unspecified; K21.9 Gastro-esophageal reflux disease without esophagitis; F17.210 Nicotine dependence, cigarettes, uncomplicated; R79.1 Abnormal coagulation profile; Z88.5 Allergy status to narcotic agent; Z88.8 Allergy status to other drugs, medicaments and biological substances; R06.00 Dyspnea, unspecified
CPT/HCPCS: 36415; 71045; 71260; 80053; 84484; 85025; 85379; 93005; 93010; 99284-25; Q9967

== ENCOUNTER → 2022-03-22 | Outpatient (CLI) | payer MEDICARE ==
[~2022-03-22] MED LIST changes: +PREG25 PO; +TRAZ50 PO
== END | disposition home or self-care (01) ==
LOC: LAB 09:09 → LAB SHORT 09:09
DX: R06.00 Dyspnea, unspecified (principal)
CPT/HCPCS: 83880; 84484; 85379

== ENCOUNTER 2022-10-21 13:19 | Observation (INO) | payer MEDICARE, OTHER ==
[~2022-10-21] VITALS: Ht 182.9 cm; Wt 122.2 kg
[2022-10-21 13:56] LABS: BASOPHILS ABSOLUTE AUTO 0.06 K/mm3 (0.00-0.23); BASOPHILS PERCENT AUTO 1 % (0-2); EOSINOPHILS ABSOLUTE AUTO 0.09 K/mm3 (0.00-0.68); EOSINOPHILS PERCENT AUTO 1 % (0-6); Hematocrit 48.4 % (37.0-53.0); Hemoglobin 15.7 g/dL (13.5-17.5); IMMATURE GRAN ABSOLUTE AUTO 0.08 K/mm3 (0.00-0.10); IMMATURE GRAN PERCENT AUTO 1 % (0-1); LYMPHOCYTES ABSOLUTE AUTO 0.94 K/mm3 (0.84-5.20); LYMPHOCYTES PERCENT AUTO 10 % (21-46); MONOCYTES ABSOLUTE AUTO 0.54 K/mm3 (0.16-1.47); MONOCYTES PERCENT AUTO 6 % (4-13); Mean Corpuscular HGB 28.2 pg (26.0-34.0); Mean Corpuscular HGB Conc 32.4 g/dL (31.5-36.5); Mean Corpuscular Volume 87 fL (80-100); Mean Platelet Volume 10.8 fL (9.1-12.4); NEUTROPHILS ABSOLUTE AUTO 7.75 K/mm3 (1.96-9.15); NEUTROPHILS PERCENT AUTO 82 % (41-73); Platelet Count 146 K/mm3 (150-400); RDW Coefficient Variation 16.3 % (11.7-14.2); RDW Standard Deviation 51.2 fL (35.1-46.3); Red Blood Cell Count 5.57 M/mm3 (4.30-5.90); White Blood Cell Count 9.46 K/mm3 (4.00-11.30)
[2022-10-21 14:16] LABS: Albumin, Blood 3.1 g/dL (3.4-5.0); Albumin/Globulin Ratio 0.8 (0.8-1.8); Bilirubin, Total 0.4 mg/dL (0.1-1.0); Bun/Creatinine Ratio 13.4 (12.0-20.0); Calcium, Blood 8.6 mg/dL (8.5-10.1); Creatinine, Blood 1.34 mg/dL (0.60-1.20); Globulin, Blood 3.8 g/dL (2.2-4.0); Potassium, Blood 4.3 mmol/L (3.5-5.5); Total Protein, Blood 6.9 g/dL (6.4-8.2)
[2022-10-21 16:03] LABS: Influenza A, PCR NEGATIVE (NEGATIVE); Influenza B, PCR NEGATIVE (NEGATIVE); Resp Syncytial Virus, PCR NEGATIVE (NEGATIVE); SARS-Cov-2 (COVID-19) PCR, MMC NEGATIVE (NEGATIVE)
[2022-10-21 20:30] VITALS: BP 204/97
[2022-10-21 21:44] VITALS: BP 202/123
[2022-10-21 22:30] VITALS: BP 192/114
[2022-10-21 22:39] VITALS: BP 194/128
[2022-10-21 23:06] VITALS: BP 197/124
[2022-10-22] VITALS (7 sets, daily range): BP systolic 181–193; BP diastolic 92–123
[2022-10-22] MEDS ORDERED: PREG150 PO (01:32)
[2022-10-22 05:53] LABS: Bun/Creatinine Ratio 15.4 (12.0-20.0); Creatinine, Blood 1.49 mg/dL (0.60-1.20); Potassium, Blood 5.6 mmol/L (3.5-5.5)
--- NOTE | 2022-10-22 07:17 | NUR ---
Shift Summary Pt admitted from ER with dx of COPD exaserbation. He is shakey and states that has been going on/off for 3 months. He states he has been having some mild chest pressure tonight but not painful, troponins are WNL. He is on 2L O2 with O2 monitoring, both of which he removes and replaces on whim. He has been very hypertensive all shift, hovering around 200/100. I placed multiple calls to the hospitalist who ordered PRN IV labatelol, reviewed the chart, and ordered other PO HTN medications which combined had little effect. Pt is AOx4 and highly anxious, stating he has PTSD from previous hospital experience and wants to leave AMA. Pt has DM2 and requested sugar soda t/o the night, threatening to leave if he didn't get soda and snacks. Pt states he is an everyday smoker and uses 1 pack/day, a nicotine patch was placed on his R shoulder.
--- NOTE | 2022-10-22 07:35 | NUR ---
ASSUMED CARE OF PT- PT ADMITTED THROUGH THE ED LAST NIGHT. PT STATES HE TAKES 5 DIFFERENT BP MEDS, BUT HE IS NOT CERTAIN WICH ONES. PT IS AN [employer] PT, CALLED DR ROSAS AND SPOKE TO HIM PT BP IS HIGH DESPITE THE IV LEBETOLOL AND PO NORVASC. PRN HYDRALIZINE WAS ORDERED. WILL ADMINISTER SOON MED IS VERIFIED BY PHARMACY.
--- NOTE | 2022-10-22 10:01 | NUR ---
PT LEFT AMA- PT WAS INSISTENT ON LEAVING THE HOSPITAL TODAY DESPITE BEING NOT MEDICALLY STABLE. PT BP WE ELEVATED WELL HIS HR WELL HIS BG. SPOKE TO DR ROSAS SEVERAL TIMES, HE IS AWARE OF THE PT DESIRE TO LEAVE. DR ROSAS CAME TO THE BEDSIDE AND SPOKE TO THE PT. THE PT CALLED FOR STAFF AND SAID HE IS LEAVING WITH OR WITHOUT THE IV. IV WAS DC'D AND PT WALKED OUT OF THE HOSPITAL ON HIS OWN.
== END 2022-10-22 10:01 | disposition left against medical advice (07) ==
LOC: ER 13:19 → MEDS 13:20 → ER 20:23 → MEDS 20:43
PROVIDERS: Nurse Practitioner Acute Care; Physician Assistant; Student in an Organized Health Care Education/Training Program; ADMIT Internal Medicine
DX: J44.1 Chronic obstructive pulmonary disease with (acute) exacerbation (principal); I25.10 Atherosclerotic heart disease of native coronary artery without angina pectoris; G47.33 Obstructive sleep apnea (adult) (pediatric); I16.0 Hypertensive urgency; K21.9 Gastro-esophageal reflux disease without esophagitis; I12.9 Hypertensive chronic kidney disease with stage 1 through stage 4 chronic kidney disease, or unspecified chronic kidney disease; E11.22 Type 2 diabetes mellitus with diabetic chronic kidney disease; N18.9 Chronic kidney disease, unspecified; G43.809 Other migraine, not intractable, without status migrainosus; F17.210 Nicotine dependence, cigarettes, uncomplicated; Z95.5 Presence of coronary angioplasty implant and graft
CPT/HCPCS: 0241U; 36415; 71046; 71260; 80048; 80053; 82947; 83880; 84484; 85025; 93005; 93010; 94640; 94644; 94660; 94664; 94762; 96365-59; 96366-59; 96367-59; 96375; 96375-59; 96376; 99285-25; A9270; G0378; J0360; J0456; J0696; J2930; J7050; Q9967

== ENCOUNTER 2023-01-11 13:44 | Emergency (ER) | payer MEDICARE ==
[~2023-01-11] VITALS: Ht 182.9 cm; Wt 122.0 kg
[~2023-01-11 13:44] MED LIST changes: +PREG150 PO
[2023-01-11 14:17] LABS: BASOPHILS ABSOLUTE AUTO 0.04 K/mm3 (0.00-0.23); BASOPHILS PERCENT AUTO 0 % (0-2); EOSINOPHILS ABSOLUTE AUTO 0.17 K/mm3 (0.00-0.68); EOSINOPHILS PERCENT AUTO 1 % (0-6); Hemoglobin 16.6 g/dL (13.5-17.5); IMMATURE GRAN ABSOLUTE AUTO 0.11 K/mm3 (0.00-0.10); IMMATURE GRAN PERCENT AUTO 1 % (0-1); LYMPHOCYTES ABSOLUTE AUTO 1.54 K/mm3 (0.84-5.20); LYMPHOCYTES PERCENT AUTO 11 % (21-46); MONOCYTES ABSOLUTE AUTO 0.75 K/mm3 (0.16-1.47); MONOCYTES PERCENT AUTO 6 % (4-13); Mean Corpuscular HGB 28.9 pg (26.0-34.0); Mean Corpuscular HGB Conc 33.2 g/dL (31.5-36.5); Mean Corpuscular Volume 87 fL (80-100); Mean Platelet Volume 9.6 fL (9.1-12.4); NEUTROPHILS ABSOLUTE AUTO 11.12 K/mm3 (1.96-9.15); NEUTROPHILS PERCENT AUTO 81 % (41-73); Platelet Count 245 K/mm3 (150-400); RDW Coefficient Variation 16.4 % (11.7-14.2); RDW Standard Deviation 51.3 fL (35.1-46.3); Red Blood Cell Count 5.75 M/mm3 (4.30-5.90); White Blood Cell Count 13.73 K/mm3 (4.00-11.30)
[2023-01-11 14:46] LABS: Albumin, Blood 3.5 g/dL (3.4-5.0); Albumin/Globulin Ratio 0.8 (0.8-1.8); Bilirubin, Total 0.5 mg/dL (0.1-1.0); Calcium, Blood 9.2 mg/dL (8.5-10.1); Creatinine, Blood 1.75 mg/dL (0.60-1.20); Globulin, Blood 4.2 g/dL (2.2-4.0); Potassium, Blood 4.6 mmol/L (3.5-5.5); Total Protein, Blood 7.7 g/dL (6.4-8.2)
[2023-01-11] MEDS ORDERED: VENL75ER PO (16:48)
[2023-01-11] MEDS ORDERED: FUROSEMIDE20 MG PO (16:49)
[2023-01-11] MEDS ORDERED: NOVOLOG FL100 UNIT/3 SQ (16:51)
[2023-01-11] MEDS ORDERED: OZEMPIC0.25 MG/02 SQ (16:52)
[2023-01-11] MEDS ORDERED: PRED20 PO (20:24)
[2023-01-11 20:30] VITALS: BP 158/100
== END 2023-01-11 20:50 | disposition left against medical advice (07) ==
LOC: ER 13:44
PROVIDERS: Student in an Organized Health Care Education/Training Program
DX: I13.0 Hypertensive heart and chronic kidney disease with heart failure and stage 1 through stage 4 chronic kidney disease, or unspecified chronic kidney disease (principal); I50.9 Heart failure, unspecified; N18.9 Chronic kidney disease, unspecified; J44.9 Chronic obstructive pulmonary disease, unspecified; I25.10 Atherosclerotic heart disease of native coronary artery without angina pectoris; G47.33 Obstructive sleep apnea (adult) (pediatric); F17.210 Nicotine dependence, cigarettes, uncomplicated; Z88.5 Allergy status to narcotic agent; Z88.8 Allergy status to other drugs, medicaments and biological substances; Z79.4 Long term (current) use of insulin; Z79.899 Other long term (current) drug therapy; Z79.85 Long-term (current) use of injectable non-insulin antidiabetic drugs; Z79.51 Long term (current) use of inhaled steroids
CPT/HCPCS: 71045; 80053; 83880; 84484; 85025; 93005; 93010; 94640; 94664; 96374; 99285-25; J1940; J7512

== ENCOUNTER → 2023-02-09 | Outpatient (CLI) | payer MEDICARE ==
[~2023-02-09] MED LIST changes: +FUROSEMIDE20 MG PO; +NOVOLOG FL100 UNIT/3 SQ; +OZEMPIC0.25 MG/02 SQ; +VENL75ER PO
[2023-02-09 11:34] LABS: BASOPHILS ABSOLUTE AUTO 0.04 K/mm3 (0.00-0.23); BASOPHILS PERCENT AUTO 0 % (0-2); EOSINOPHILS ABSOLUTE AUTO 0.18 K/mm3 (0.00-0.68); EOSINOPHILS PERCENT AUTO 1 % (0-6); Hematocrit 48.5 % (37.0-53.0); Hemoglobin 16.1 g/dL (13.5-17.5); IMMATURE GRAN PERCENT AUTO 1 % (0-1); LYMPHOCYTES ABSOLUTE AUTO 1.41 K/mm3 (0.84-5.20); LYMPHOCYTES PERCENT AUTO 11 % (21-46); MONOCYTES ABSOLUTE AUTO 0.75 K/mm3 (0.16-1.47); MONOCYTES PERCENT AUTO 6 % (4-13); Mean Corpuscular HGB 29.3 pg (26.0-34.0); Mean Corpuscular HGB Conc 33.2 g/dL (31.5-36.5); Mean Corpuscular Volume 88 fL (80-100); Mean Platelet Volume 9.9 fL (9.1-12.4); NEUTROPHILS ABSOLUTE AUTO 10.14 K/mm3 (1.96-9.15); NEUTROPHILS PERCENT AUTO 80 % (41-73); Platelet Count 189 K/mm3 (150-400); RDW Coefficient Variation 15.6 % (11.7-14.2); RDW Standard Deviation 48.8 fL (35.1-46.3); White Blood Cell Count 12.62 K/mm3 (4.00-11.30)
[2023-02-09 11:43] LABS: Albumin, Blood 3.5 g/dL (3.4-5.0); Albumin/Globulin Ratio 0.9 (0.8-1.8); Bilirubin, Total 0.4 mg/dL (0.1-1.0); Bun/Creatinine Ratio 12.8 (12.0-20.0); Calcium, Blood 9.6 mg/dL (8.5-10.1); Creatinine, Blood 1.8 mg/dL (0.60-1.20); Globulin, Blood 3.8 g/dL (2.2-4.0); Potassium, Blood 4.6 mmol/L (3.5-5.5); Total Protein, Blood 7.3 g/dL (6.4-8.2)
== END | disposition home or self-care (01) ==
LOC: LAB SHORT 11:27 → LAB 11:27
PROVIDERS: Physician Assistant
DX: R10.9 Unspecified abdominal pain (principal)
CPT/HCPCS: 80053; 83690; 85025

== ENCOUNTER 2023-07-15 10:33 | Inpatient (IN) | payer MEDICARE ==
[2023-07-15] VITALS (17 sets, daily range): BP systolic 123–179; BP diastolic 73–102
[~2023-07-15] VITALS: Ht 182.8 cm; Wt 110.7 kg
[~2023-07-15 10:33] MED LIST changes: +Mirapex0.5 MG PO; +OZEMPIC0.25 MG/02 SC; -OZEMPIC0.25 MG/02 SQ
[2023-07-15] MEDS ORDERED: MethylPREDNISolone Sod Succ 125 MG Vial IV ONE (10:40)
[2023-07-15 10:54] LABS: BASOPHILS ABSOLUTE AUTO 0.04 K/mm3 (0.00-0.23); BASOPHILS PERCENT AUTO 0 % (0-2); EOSINOPHILS ABSOLUTE AUTO 0.24 K/mm3 (0.00-0.68); EOSINOPHILS PERCENT AUTO 3 % (0-6); Hematocrit 51.7 % (37.0-53.0); Hemoglobin 16.3 g/dL (13.5-17.5); IMMATURE GRAN ABSOLUTE AUTO 0.06 K/mm3 (0.00-0.10); IMMATURE GRAN PERCENT AUTO 1 % (0-1); LYMPHOCYTES ABSOLUTE AUTO 1.17 K/mm3 (0.84-5.20); LYMPHOCYTES PERCENT AUTO 13 % (21-46); MONOCYTES ABSOLUTE AUTO 0.69 K/mm3 (0.16-1.47); MONOCYTES PERCENT AUTO 8 % (4-13); Mean Corpuscular HGB 28.7 pg (26.0-34.0); Mean Corpuscular HGB Conc 31.5 g/dL (31.5-36.5); Mean Corpuscular Volume 91 fL (80-100); Mean Platelet Volume 9.4 fL (9.1-12.4); NEUTROPHILS ABSOLUTE AUTO 7.03 K/mm3 (1.96-9.15); NEUTROPHILS PERCENT AUTO 76 % (41-73); Platelet Count 169 K/mm3 (150-400); RDW Coefficient Variation 14.9 % (11.7-14.2); RDW Standard Deviation 49.5 fL (35.1-46.3); Red Blood Cell Count 5.67 M/mm3 (4.30-5.90); White Blood Cell Count 9.23 K/mm3 (4.00-11.30)
[2023-07-15 11:13] LABS: Albumin, Blood 3.7 g/dL (3.4-5.0); Albumin/Globulin Ratio 0.9 (0.8-1.8); Bilirubin, Total 0.4 mg/dL (0.1-1.0); Bun/Creatinine Ratio 14.7 (12.0-20.0); Calcium, Blood 9.1 mg/dL (8.5-10.1); Creatinine, Blood 1.5 mg/dL (0.60-1.20); Globulin, Blood 4.2 g/dL (2.2-4.0); Magnesium, Blood 2.1 mg/dL (1.6-2.4); Potassium, Blood 4.8 mmol/L (3.5-5.5); Total Protein, Blood 7.9 g/dL (6.4-8.2)
[2023-07-15] MEDS ORDERED: LORazepam 2 MG/ML 1ML Injection IV PRN ×2 (11:25→21:20)
[2023-07-15 11:49] LABS: Base Excess Venous 3.7 mmol/L; Bicarbonate Venous 23.4 mmol/L (24.0-30.0); PCO2 Venous 95.3 mmHg (38-42); pH Blood Venous 7.14 (7.34-7.37)
[2023-07-15 12:57] LABS: Base Excess Venous 4.5 mmol/L; PCO2 Venous 87.7 mmHg (38-42); pH Blood Venous 7.18 (7.34-7.37)
[2023-07-15 13:37] LABS: PCO2 Arterial 79 mmHg (35-45); PO2 Arterial 58 mmHg (80-100)
[2023-07-15] MEDS ORDERED: Albuterol 2.5 MG/3 ML VIAL INH ONE (13:45)
[2023-07-15] MEDS ORDERED: Ipratropium/Albuterol SulF 2.5-0.5MG/3 ML Amp INH ONE (13:45)
[2023-07-15] MEDS ORDERED: Albuterol 2.5 MG/3 ML VIAL INH PRN (13:45)
[2023-07-15] MEDS ORDERED: HydrALAZINE HCl 20 MG / ML 1ML Vial IV PRN (14:00)
[2023-07-15] MEDS ORDERED: Ipratropium/Albuterol SulF 2.5-0.5MG/3 ML Amp INH SCH ×2 (14:25→16:00)
[2023-07-15 16:05] LABS: Base Excess Venous 2.8 mmol/L; Bicarbonate Venous 24.1 mmol/L (24.0-30.0); PCO2 Venous 75.5 mmHg (38-42); pH Blood Venous 7.22 (7.34-7.37)
[2023-07-15] MEDS ORDERED: Omeprazole 20 MG CapCR PO SCH (16:30)
[2023-07-15] MEDS ORDERED: Carvedilol 25 MG Tab PO SCH (17:00)
--- NOTE | 2023-07-15 17:43 | NUR ---
SHIFT SUMMARY PT TRANSFERRED TO ICU BED VIA SLIDER SHEET. PT ALERT TO SELF INITIALLY, VERY DIFFICULT TO UNDERSTAND, REPETITIVE WITH QUESTIONS. VERY JUMPY WITH STIMULI, FLAILING ARMS AND LEGS. PT NOW A&O TO PERSON, YEAR, AND PLACE BUT HAVING DIFFICULTY STAYING ON TRACK. QUICKLY BACK TO SLEEP WITH DECREASED STIMULI. PT ON BIPAP 20/10 @ 35% c SATS >90%. 6LPM O2 VIA NC DURING SHORT BREAKS WITH ORAL CARE AND SATS MAINTAINED >90%. CONDOM CATHETER IN PLACE, NO URINE OUTPUT YET. PT REMAINS NPO.
[2023-07-15] MEDS ORDERED: MethylPREDNISolone Sod Succ 125 MG Vial IV SCH (18:00)
[2023-07-15] MEDS ORDERED: Insulin Human Lispro 100 Units/ML 3ML Syringe SC SCH (18:00)
--- NOTE | 2023-07-15 18:06 | NUR ---
SOCIAL CONCERNS THIS NURSE CONTACTED PTS BROTHER [id number]. VÍCTOR IS VERY CONCERNED WITH PTS NON COMPLIANCE WITH MEDICAL NEEDS. PER VÍCTOR PT HAS SEVERE PTSD RELATED TO BEING HOSPITALIZED FOR 4-1/2 MONTHS AND NEARLY DYING, WELL RECENTLY LOSING HIS SPOUSE WHEN SHE WAS HOSPITALIZED. PT FREQUENTLY LEAVES AMA. HE ALSO REQUIRES HOME OXYGEN BUT HIS CONCENTRATOR IS OVER 10 YEARS OLD AND DOESN'T CONSISTENTLY WORK.
[2023-07-15 18:26] LABS: Base Excess Venous 2.4 mmol/L; Bicarbonate Venous 24.3 mmol/L (24.0-30.0); PCO2 Venous 70.6 mmHg (38-42)
[2023-07-15 18:27] LABS: pH Blood Venous 7.24 (7.34-7.37)
--- NOTE | 2023-07-15 20:00 | NUR ---
ASSUMED CARE OF PT AT 1900. REPORT RECEIVED AT BEDSIDE. PT PRESENTS IN BED. WEARING BIPAP MASK ON. 25/11. PT SLEEPING AT THIS TIME. WILL REVIEW CHART AND PLAN OF CARE FOR THIS PT.
[2023-07-15] MEDS ORDERED: BASAGLAR K100 UNIT/1 SC (20:25)
[2023-07-15] MEDS ORDERED: OZEMPIC1 MG/0.72 SC (20:31)
[2023-07-15] MEDS ORDERED: BREO ELLIPTA 21 EAC1 INH (20:38)
[2023-07-15] MEDS ORDERED: CARVEDILOL25 M9 PO (20:39)
[2023-07-15] MEDS ORDERED: LOSA50 PO (20:43)
[2023-07-15] MEDS ORDERED: ONDA4ODT MM (20:46)
[2023-07-15] MEDS ORDERED: PROZAC2010 PO (20:49)
[2023-07-16] VITALS (12 sets, daily range): BP systolic 127–174; BP diastolic 76–97
--- NOTE | 2023-07-16 02:51 | NUR ---
PT REQUESTS BREAK TO NASAL CANNULA HIGH FLOW. 10 L/M TO MAINTAIN OXYGEN SATURATIONS NEAR 90 PERCENT. PT REQUESTING TO GET OUT OF BED TO STAND AT THIS TIME. WILL TRY TO FACILITATE THIS FOR PT. HAVE CALLED HOSPITALIST EARLIER IN THE EVENING CONCERNING PT'S ANXIETY ISSUES. PRECEDEX WAS DISCONTINUED, AND PRN ATIVAN WAS ORDERED. HAVE ADMINISTERED ONE DOSE OF 1 MG ATIVAN WHEREAS PT WAS ABLE TO REST WITH DECREASE IN ANXIOUSNESS. PT WAS ABLE TO PARTICIPATE IN MEDICATION RECONCILIATION. WILL CONTINUE TO MONITOR PT.
[2023-07-16 03:31] LABS: Hemoglobin 15.9 g/dL (13.5-17.5); Mean Corpuscular HGB 28.2 pg (26.0-34.0); Mean Corpuscular HGB Conc 31.2 g/dL (31.5-36.5); Mean Corpuscular Volume 91 fL (80-100); Mean Platelet Volume 9.6 fL (9.1-12.4); Platelet Count 185 K/mm3 (150-400); RDW Coefficient Variation 14.5 % (11.7-14.2); RDW Standard Deviation 48.5 fL (35.1-46.3); Red Blood Cell Count 5.63 M/mm3 (4.30-5.90); White Blood Cell Count 12.53 K/mm3 (4.00-11.30)
[2023-07-16 03:54] LABS: BAND PERCENT MAN 13 % (0-8); BASOPHILS PERCENT MAN 0 % (0-2); EOSINOPHILS PERCENT MAN 0 % (0-6); LYMPHOCYTES ABSOLUTE MAN 0.25 K/mm3 (0.84-5.20); LYMPHOCYTES PERCENT MAN 2 % (21-46); MONOCYTES ABSOLUTE MAN 0.12 K/mm3 (0.16-1.47); MONOCYTES PERCENT MAN 1 % (4-13); NEUTROPHILS ABSOLUTE MAN 12.15 K/mm3 (1.96-9.15); SEG NEUTROPHILS PERCENT MAN 84 % (41-73); TOTAL CELLS COUNTED 100
[2023-07-16 04:03] LABS: Albumin, Blood 3.3 g/dL (3.4-5.0); Albumin/Globulin Ratio 0.8 (0.8-1.8); Bilirubin, Total 0.5 mg/dL (0.1-1.0); Calcium, Blood 9.1 mg/dL (8.5-10.1); Creatinine, Blood 1.47 mg/dL (0.60-1.20); Globulin, Blood 4.2 g/dL (2.2-4.0); Potassium, Blood 4.6 mmol/L (3.5-5.5); Total Protein, Blood 7.5 g/dL (6.4-8.2)
[2023-07-16] MEDS ORDERED: LORazepam 2 MG/ML 1ML Injection IV PRN (04:40)
--- NOTE | 2023-07-16 04:58 | NUR ---
PT TRANSFERRED TO PCU 20. TRANSFERS WITH 10 L/M OXYGEN PER HIGH FLOW NASAL CANNULA. PT PIVOT TRANSFERS TO W/C FROM BED. UNSTEADY ON HIS FEET. DOES TELL THE PCU NURSE, MYRIAM, THAT HE WANTS THE CONDOM CATH OFF, AND WANTS TO BE ABLE TO WALK INTO BATHROOM TO VOID. PT IS MADE AWARE THAT HIS WALKING IS VERY UNSURE AND NEEDS OXYGEN TO AMBULATE. ALL BELONGINGS TO ROOM WITH PT. RESPIRATORY THERAPY TO ROOM WITH BIPAP.
[2023-07-16] MEDS ORDERED: Ipratropium/Albuterol SulF 2.5-0.5MG/3 ML Amp INH SCH (05:45)
--- NOTE | 2023-07-16 06:47 | NUR ---
SHIFT SUMMARY RECEIVED PATIENT FROM ICU THIS AM. HE IS ALERT AND ORIENTED, RELUCTANT TO COOPERATIVE WITH CARES BUT ABLE TO MAKE HIS NEEDS KNOWN. CALL LIGHT WITHIN REACH. BED ALARM UTILIZED. PATIENT TENDS TO OVERESTIMATE HIS MOBILITY. AT THIS TIME HE HAS A VERY UNSTEADY/SHAKY GAIT REQUIRING 1P ASSIST WITH WALKER TO AMBULATE SAFELY. HE INSISTS ON USING RESTROOM VS. URINAL. HIGH O2 DEMAND SWITCHING BETWEEN 10L VIA HIGH FLOW NASAL CANNULA AND BIPAP 50% 20/10, TACHYPNEA WITH RR 30'S. RECEIVED NEB THIS AM. PATIENT IS HIGH FALL RISK DUE TO HIS "INDEPENDENCE." NO ACUTE EVENTS SINCE ARRIVAL TO PCU.
[2023-07-16 07:18] LABS: Base Excess Venous 1.6 mmol/L; Bicarbonate Venous 24.2 mmol/L (24.0-30.0); pH Blood Venous 7.33 (7.34-7.37)
[2023-07-16] MEDS ORDERED: Insulin Human Lispro 100 Units/ML 3ML Syringe SC SCH (07:30)
--- NOTE | 2023-07-16 08:14 | NUR ---
PT REPORTS THAT "NURSES DON'T KNOW HOW TO TREAT MY BLOOD SUGARS RIGHT, THEY GIVE ME SHORT AND LONG TOGETHER AND THAT COUNTERACTS EACH OTHER".
[2023-07-16] MEDS ORDERED: Aspirin 81 MG Chew PO SCH (09:00)
[2023-07-16] MEDS ORDERED: Losartan Potassium 50 MG Tab PO SCH (09:00)
[2023-07-16] MEDS ORDERED: Furosemide 10 MG / ML 2ML Vial IV SCH ×2 (09:00→15:00)
[2023-07-16] MEDS ORDERED: Venlafaxine HCl 75 MG CapCR PO SCH (09:00)
[2023-07-16] MEDS ORDERED: AmLODIPine Besylate 5 MG Tab PO SCH ×2 (09:00)
[2023-07-16] MEDS ORDERED: Enoxaparin 40 MG/0.4 ML SYR SC SCH (09:00)
[2023-07-16] MEDS ORDERED: FLUoxetine HCL 20 MG CAP PO SCH (09:00)
[2023-07-16] MEDS ORDERED: Insulin Glargine-Yfgn 100 Unit/mL 3 ML SYR SC SCH (09:00)
--- NOTE | 2023-07-16 10:39 | NUR ---
pt uncooperative with medical advice eg: leave o2 and o2 monitior on. asked pt to sit down in shower due to fall risk, he refused and stumbled but caught himself. i expressed to him the importance of safety however he did not listen, continued to walk barefoot to wheelchair.
--- NOTE | 2023-07-16 11:02 | NUR ---
PT IS ALERT, ORIENTED TO PERSON, PLACE, AND SELF. HE IS VERY DIFFICULT TO REDIRECT. THIS AM HE REMOVED HIS O2 AND BEGAN ATTEMPTING TO AMBULATE IN THE [place] WITH PCT DESPITE BEING TOLD HE REQUIRED O2 HE IS ON 13L VIA HIGH FLOW AT THIS TIME. HE WAS NOT ABLE TO AMBULATE FAR BEFORE HE BECAME SOB, PT STATING THAT "YOU GIRLS DON'T KNOW HOW TO MANAGE ME", DR ROSAS WAS ASKED TO INTERVENE NURSING INTERVENTION WAS NOT RECIEVED WELL BY PT, DR ROSAS ASSISTED PT INTO WHEELCHAIR AND RETURNED HIM TO HIS ROOM, DR ROSAS EDUCATED PT BUT EDUCATION WAS NOT SUCCESSFUL LONGER TERM. WITHIN [address] ROSAS SPEAKING TO THE PT HE WAS ATTEMPTING TO EXIT HIS ROOM AGAIN AND REMOVE O2. PT'S 02 NEEDS HAVE RANGED FROM 10L-15L VIA HIGH FLOW, HE REFUSES CPAP. SPO2 RANGES FROM 88-92%, WHEN TALKING OR MOVING ABOUT SPO2 DROPS TO 82%. HE REFUSED SHORT ACTING INSULIN THIS AM STATING THAT "YOU GIRLS DON'T KNOW WHAT YOU'RE DOING MANAGING MY SUGARS, YOU GIVE THE SHORT AND THE LONG TOGETHER AND THEY COUNTERACT EACH OTHER AND YOU GUYS DON'T UNDERSTAND THAT AND DON'T LISTEN". SHORT ACTING INSULIN WAS HELD, PT WAS NOT RECEPTIVE TO ANY EDUCATION ABOUT THE MECHANISM OF ACTIVE OD MEDICATIONS.
[2023-07-16] MEDS ORDERED: CefTRIAXone Sodium 1,000 MG in NS 100 ML IV SCH (13:00)
--- NOTE | 2023-07-16 17:33 | NUR ---
PT HAS BEEN ARGUMENTIVE T/O THE DAY, NON-COMPLIANT WITH INSULIN. HE HAS BEEN VERY IMPULSIVE FOR THE DAY, EXITING BED, REMOVING NASAL CANNULA AND REFUSING TO REPLACE IT. STATING "TYPICALLY I LEAVE AGAINST MEDICAL ADVICE, I DON'T WANT TO BE IN THIS ROOM ALL DAY" WHEN HE IS UP HE REFUSES TO USE WALKER, HE HAS A VERY UNSTEADY GAIT, HE IS A VERY HIGH FALL RISK, AND WILL NOT FOLLOW DIRECTION, ON TOP OF REMOVING OXYGEN. HIS 02 REQUIREMENT THIS SHIFT HAS MOSTLY BEEN AT 13L VIA HIGH FLOW. HE CALLS FAMILY AND EXPRESSED THAT HE IS ANGRY THAT THE BED ALARM IS ON, THIS RN DID UPDATE FAMILY ABOUT WHY BED ALARM IS ACTIVIATED AND FAMILY WAS VERY SUPPORTIVE OF THE BED ALARM BEING ACTIVATED. PT REPORTS "I WILL JUST KEEP SETTING IT OFF UNTIL YOU LEAVE IT OFF" PT REMINDED THAT THE ALARM IS ACTIVATED BECAUSE HE IS A VERY HIGH FALL RISK, IMPULSIVE, AND REQUIRING A GOOD DEAL OF OXYGEN, AND THAT WHEN HE IS UP HE IS REMOVING HIS OXYGEN, ALL OF WHICH IS NOT SAFE FOR HIM. HE WAS ALLOWED TO LA POSTA THE UNIT VIA WHEELCHAIR TWICE TODAY WITH PORTABLE OXYGEN IN PLACE.
[2023-07-16] MEDS ORDERED: Nicotine 21 MG PATCH TOP SCH (20:05)
[2023-07-16] MEDS ORDERED: Pregabalin 75 MG Cap PO SCH (21:00)
[2023-07-16] MEDS ORDERED: Atorvastatin 40 MG Tab PO SCH (21:00)
[2023-07-16] MEDS ORDERED: Pramipexole DI-HCL 1 Mg Tab PO SCH (21:00)
--- NOTE | 2023-07-16 22:28 | NUR ---
ASSUMED CARE ASSUMED CARE AT 1900. PT A/O X 4. IRRITABLE AT TIMES BUT MOSTLY COOPERATIVE WITH CARE. PT IMPULSIVE AND EASILY FRUSTRATED. ENDORSES PTSD FROM PRIOR HOSPITAL STAY AND STATES "I JUST WANT TO GO HOME". RECEPTIVE TO EDUCATION REGARDING BLOOD SUGAR WHEN ASKING ABOUT PEPSI. DID ALLOW PM MEDS TO BE GIVEN. VSS. ON 6L VIA HFNC. PT AGREED TO TRY BIPAP TONIGHT. RT IN ROOM AND MASK CHANGED TO FIT PT BETTER. PT LAYING DOWN/SITTING UP RAPIDLY, TWITCHING LEGS, AND REPORTS FEELING CLAUSTROPHOBIC PRN ATIVAN GIVEN TO HELP TOLERATE BIPAP. PT APPEARS TO BE RESTING AT THIS TIME. ONE PERSON ASSIST TO BR, PT INITIALLY TOOK OFF OXYGEN AND PULLED AT TANGLED CORDS. DID PUT OXYGEN BACK ON WHEN ASKED BY THIS RN AND CORDS UNTANGLED. PT ALSO AGREEABLE TO USE WALKER. BED ALARM IN PLACE.
[2023-07-17 03:30] LABS: Hematocrit 45.8 % (37.0-53.0); Hemoglobin 14.8 g/dL (13.5-17.5); Mean Corpuscular HGB 28.9 pg (26.0-34.0); Mean Corpuscular HGB Conc 32.3 g/dL (31.5-36.5); Mean Corpuscular Volume 90 fL (80-100); Mean Platelet Volume 9.8 fL (9.1-12.4); Platelet Count 184 K/mm3 (150-400); RDW Coefficient Variation 14.2 % (11.7-14.2); RDW Standard Deviation 46.7 fL (35.1-46.3); Red Blood Cell Count 5.12 M/mm3 (4.30-5.90); White Blood Cell Count 17.39 K/mm3 (4.00-11.30)
[2023-07-17 03:33] LABS: Base Excess Venous 4.6 mmol/L; PCO2 Venous 68.6 mmHg (38-42); pH Blood Venous 7.27 (7.34-7.37)
[2023-07-17 03:49] LABS: Albumin, Blood 3.2 g/dL (3.4-5.0); Albumin/Globulin Ratio 0.8 (0.8-1.8); Bilirubin, Total 0.3 mg/dL (0.1-1.0); Bun/Creatinine Ratio 26.7 (12.0-20.0); Calcium, Blood 8.8 mg/dL (8.5-10.1); Creatinine, Blood 1.72 mg/dL (0.60-1.20); Globulin, Blood 3.9 g/dL (2.2-4.0); Potassium, Blood 4.8 mmol/L (3.5-5.5); Total Protein, Blood 7.1 g/dL (6.4-8.2)
--- NOTE | 2023-07-17 04:02 | NUR ---
UPDATE PT A/O X 4, PULLING BIPAP AND LINES OFF AT TIMES. STATES "I DON'T WANT ANY OF THIS SHIT." VBG DONE AND CRITICAL PH TOLD TO RESIDENT. DISCUSSION WITH RT, RESIDENT AND THIS RN REGARDING PT BEING A/O X 4, SEDATION AND KEEPING PT SAFE. ORDER TO GIVE ATIVAN Q2 NEEDED TO TOLERATE BIPAP AND IF NEEDED TRANSFER TO ICU FOR PRECEDEX GTT.
[2023-07-17 04:12] LABS: BAND PERCENT MAN 10 % (0-8); BASOPHILS PERCENT MAN 0 % (0-2); EOSINOPHILS PERCENT MAN 0 % (0-6); LYMPHOCYTES ABSOLUTE MAN 0.34 K/mm3 (0.84-5.20); LYMPHOCYTES PERCENT MAN 2 % (21-46); MONOCYTES ABSOLUTE MAN 0.34 K/mm3 (0.16-1.47); MONOCYTES PERCENT MAN 2 % (4-13); NEUTROPHILS ABSOLUTE MAN 16.69 K/mm3 (1.96-9.15); SEG NEUTROPHILS PERCENT MAN 86 % (41-73); TOTAL CELLS COUNTED 100
[2023-07-17 05:38] VITALS: BP 158/96
[2023-07-17 05:45] VITALS: BP 148/92
[2023-07-17 05:55] LABS: Bicarbonate Venous 26.2 mmol/L (24.0-30.0); PCO2 Venous 68.3 mmHg (38-42); pH Blood Venous 7.28 (7.34-7.37)
--- NOTE | 2023-07-17 06:07 | NUR ---
UPDATE PT WOKE UP, PULLED OFF BIPAP MASK, AND FIGITING IN BED. PT STATING "NO" WHEN ASKED TO PUT BIPAP ON. ATIVAN GIVEN AND PT RELAXED ENOUGH TO TOLERATE MASK. RESIDENT AT BEDSIDE AND INFORMATION RELAYED TO HIM. ORDER FOR REPEAT VBG AND CRITICAL RESULT RELAYED TO RESIDENT. CONVERSATION ABOUT GOAL, POC AND LAB RESULTS. ORDER FOR RT TO EVALUATE BIPAP SETTINGS AND REEVALUATE IN AM. VSS. WILL REPORT OFF TO ONCOMING RN.
[2023-07-17 07:52] VITALS: BP 134/77
[2023-07-17] MEDS ORDERED: Pramipexole DI-HCL 0.25 MG Tab PO SCH (09:00)
[2023-07-17] MEDS ORDERED: Spironolactone 50 MG Tab PO SCH (09:00)
--- NOTE | 2023-07-17 10:22 | NUR ---
PER NOC SHIFT THERE WAS CONTINUOUS BEHAVIORAL ISSUES LAST NIGHT THAT PT REQUIRED MULTIPLE DOSES OF ATIVAN THROUGH THE NIGHT. WHEN I ARRIVED FOR MY SHIFT PT APPEARED TO BE SLEEPING SOUNDLY, VSS, EVEN CHEST RISE AND FALL, HE WAS ON BIPAP. AROUND 0900 PT AWOKE ABRUPTLY WAS ATTEMPTING TO EXIT THE BED WITH BIPAP MASK STILL IN PLACE, HE RIPPED MASK FROM HIS FACE WHEN THIS RN ATTEMPTED TO ASSIST HE KICKED AT ME. HE CALMED ENOUGH I COULD APPROACH AND PLACE NASAL CANNULA ON HIM THEN HE AGAIN ATTEMPTED TO EXIT THE BED HE WAS VERY UNSTEADY AND SHAKING HE HAD A NEWAR FALL AT THIS TIME BUT WAS SAFELY RETURNED TO HIS BED WITHOUT INCIDENT. HE THEN DRES HIS FIST BACK THREAT TO STRIKE ME, HE WAS DIRECTED THAT HITTING ME WOULD NOT BE TOLERATED.
[2023-07-17 13:00] VITALS: BP 152/87
--- NOTE | 2023-07-17 14:05 | NUR ---
Spiritual care visit conducted. Patient is sitting on a wheel chair out in the hallway. I walk along side him as we make our way back to his patient room. He tells me about his medical issues, that he lives alone with his Dog and he is having a bit of a struggle emotionally. Once back in his room he tell me about his spiritual distress that began when his 3 yrs ago. He shares about the anguish, loneliness and anxiety that he lives with today. We explore sources of value, meaning and purpose. I normalize his feelings and fears, reinforce helpful attitudes and provided therapeutic listening, grief support, theological insights and prayer. Patient responded well and showed signs of being comforted and having an increase of hope.
[2023-07-17 15:36] VITALS: BP 148/916
--- NOTE | 2023-07-17 16:44 | NUR ---
Pt aggitated and confussed trying to exit hospital. Considerable tome reorienting pt. Review of symptoms with physcian. Pt states his brother is out of town will try to reach him. KPS score is 30% pt would benefit from hospice care.
--- NOTE | 2023-07-17 17:53 | NUR ---
PT'S MENTATION HAS WAXED AND WANED T/O THE DAY. HE HAS BEEN AGITATED AND COMBATIVE FOR A GOOD PORTION OF THE DAY. HE IS NOT REDIRECTABLE, IMPULSIVE AND HAS SET OFF HIS BED ALARM NUMEROUS TIMES TODAY. THIS AM DURING AN IMPULSIVE EPISODE PT EXITED BED REMOVED OXYGEN AND THEN NEARLY FELL ONTO THIS RN, HE WAS ABLE TO BE GUIDED TO BED AND FALL AVOIDED. PT STS "IF YOU WANT ME TO STAY IN THE BED DO WHAT I TELL YOU AND DON'T LEAVE ME" THEN STS "DON'T TOUCH ME" AND "I AM A 68 YEAR OLD MAN DON'T TELL ME WHAT TO DO". THIS AFTERNOON HE SLEPT FOR ABOUT 3 HOURS THEN AWOKE ALERT HAD AN ORIENTED CONVERSATION WITH ME, THEN APPROXIMATELY 5 MINUTES LATER PCT ENTERED ROOM PATIENT THEN BEGAN CALLING HER MOMMA STATED THEN BEGAN REPEATING "SOMETHINGS NOT RIGHT" NUMEROUS TIMES AND THEN BEGAN STUTTERING AND TWITCHING AND FLAILING ABOUT IN THE BED. THIS RN TO ROOM AND WITNESSED PT'S EPISODE. PT WOULD ANSWER WITH STUTTERING AND THEN FLAILING ABOUT AND ATTEMPTING TO EXIT THE BED, HE BECAME COMBATIVE AND AGITATED. DECISION WAS MADE TO GIVE ATIVAN FOR AGITATION AND FLAILING ABOUT. DR MARTIN WAS CALLED TO ROOM, PT WAS PLACED BACK ON BIPAP, HE IMMEDIATELY WAS ATTEMPTING TO REMOVE BIPAP AND SCREAMING. PT REFUSING BIPAP. DR MARTIN TO BEDSIDE TO DISCUSS HIS WISHES AND PT CLOSES EYES AND STOPS RESPONDING, WHEN DR MARTIN LEFT THE ROOM HE OPENS EYES AND BEGINS TALKING WITH STAFF. THIS RN BEGAN DISCUSSING CODE STATUS WITH HIM HE AGAIN CLOSES EYES AND STOPS RESPONDING, PALLIATIVE CARE IS CALLED TO CONSULT WITH HIM.
[2023-07-17 20:27] VITALS: BP 138/78
[2023-07-17] MEDS ORDERED: Lactobacil 2-S.Thermo-Bifido 1 1 Cap PO SCH (21:00)
--- NOTE | 2023-07-17 21:08 | NUR ---
ASSUMED CARE PT A&O X3; SPO2 >92% ON 5L NC; MAP >65. DENIES CP, INCREASED SOB, OR NAUSEA. PT IS CURRENTLY PLEASANT AND COOPERATIVE W/ CARE. EDUCATION GIVEN ON PURPOSE OF BIPAP W/ PT AGREEING TO TRY BIPAP BEFORE BED W/ LOWER SETTINGS. BED ALARM ON AND SITTER.
[2023-07-18] VITALS (7 sets, daily range): BP systolic 105–142; BP diastolic 70–81
[2023-07-18 05:18] LABS: Bicarbonate Venous 27.8 mmol/L (24.0-30.0); PCO2 Venous 68.3 mmHg (38-42)
[2023-07-18 05:19] LABS: Base Excess Venous 7.3 mmol/L
[2023-07-18 05:26] LABS: BASOPHILS ABSOLUTE AUTO 0.01 K/mm3 (0.00-0.23); BASOPHILS PERCENT AUTO 0 % (0-2); EOSINOPHILS PERCENT AUTO 0 % (0-6); Hematocrit 52.3 % (37.0-53.0); Hemoglobin 16.5 g/dL (13.5-17.5); IMMATURE GRAN PERCENT AUTO 1 % (0-1); LYMPHOCYTES ABSOLUTE AUTO 0.44 K/mm3 (0.84-5.20); LYMPHOCYTES PERCENT AUTO 3 % (21-46); MONOCYTES ABSOLUTE AUTO 0.48 K/mm3 (0.16-1.47); MONOCYTES PERCENT AUTO 3 % (4-13); Mean Corpuscular HGB 28.5 pg (26.0-34.0); Mean Corpuscular HGB Conc 31.5 g/dL (31.5-36.5); Mean Corpuscular Volume 91 fL (80-100); Mean Platelet Volume 9.8 fL (9.1-12.4); NEUTROPHILS ABSOLUTE AUTO 13.96 K/mm3 (1.96-9.15); NEUTROPHILS PERCENT AUTO 93 % (41-73); Platelet Count 203 K/mm3 (150-400); RDW Coefficient Variation 14.4 % (11.7-14.2); RDW Standard Deviation 47.9 fL (35.1-46.3); Red Blood Cell Count 5.78 M/mm3 (4.30-5.90); White Blood Cell Count 14.99 K/mm3 (4.00-11.30)
[2023-07-18 05:49] LABS: Albumin, Blood 3.5 g/dL (3.4-5.0); Anion Gap 7 mmol/L (3-11); Blood Urea Nitrogen 51 mg/dL (8-24); Bun/Creatinine Ratio 35.7 (12.0-20.0); CO2, Blood 34 mmol/L (21-32); Calcium, Blood 9.4 mg/dL (8.5-10.1); Chloride, Blood 103 mmol/L (98-108); Creatinine, Blood 1.43 mg/dL (0.60-1.20); Glomerular Filtration Rate 53 (60-); Glucose, Blood 161 mg/dL (70-99); Phosphorus, Blood 4.2 mg/dL (2.5-4.9); Potassium, Blood 4.6 mmol/L (3.5-5.5); Sodium, Blood 139 mmol/L (136-145)
--- NOTE | 2023-07-18 07:30 | NUR ---
SHIFT SUMMARY PT REMAINS A&O X3. RESTED QUIETLY FOR MOST OF NIGHT AND WORE BIPAP FOR 3~ HOURS. WHILE WEARING BIPAP, PT APPEARED MORE AGITATED WHEN WAKING (E.G., HOLDING UP BOTH FISTS WHEN WOKEN, FLAILING ARMS/LEGS WHEN BEFORE WAKING, ETC.). THIS AM PT MADE INNAPROPRIATE COMMENTS TO BREAK NURSE "YOU HAVE A NICE ASS". PT ALSO ASKED SITTER TO CLIMB INTO BED W/ HIM VISHAL ASKING IF SHE HAD A BOYFRIEND. AFTER THIS, THIS RN WAS IN PT ROOM W/ SITTER DURING INTERACTIONS. PT ALSO STATED SEVERAL TIMES THAT HE WANTED TO GO HOME AND WAS LEAVING; EDUCATION WAS GIVEN ON RISKS OF LEAVING AGAINST MEDICAL ADVICE AND PT CONCEDED TO AT LEAST WAITING TIL MORNING HOSPITALIST HAD SEEN PT. NO OTHER ACUTE EVENTS.
--- NOTE | 2023-07-18 09:36 | NUR ---
Case Conference: Spoke with pt's brother Case who lives in [place]. He states Juni has severe PTSD related to his passing in the hospital after matias an infection. I was honest with Case regarding Juni's poor prognosis. I explained that his condition is terminal, and once hospice is initiated, the patient will not return to the hospital for treatment. His symptoms will be treated and the hospice team will oversee his care, but the bulk of the care will need to be done by family. Once Case v/u, he stated he and his are willing to come here to [place] to stay with Juni if he does in fact go home with hospice. Case and have placed their home on the market and have a travel trailer. They are beginning to make arrangements, and will arrive to [place] in approximately 3 days. I will discuss this with Juni today, and if he is amenable to this plan, we can d/c the patient home with hospice in 3 days. Will f/u with CM and bedside RN.
--- NOTE | 2023-07-18 10:41 | NUR ---
AM NOTE... ASSUMED CARE OF PT AT 0700. PT IS A&Ox4. PT IS ON 6L NC WITH O2 SATS>92%. L/S COARSE WHEEZES T/O DIM IN THE BASES. PT IS REFUSING TO WEAR BIPAP AT THIS TIME BUT IS C/O OF FEELING DIZZY AND SOB. HE IS IN SR IN THE 80'S-90'S BP IS STABLE. NO EDEMA IS NOTED ON THIS ASSESSMENT. PT IS ANXIOUS AND STATING HE IS WANTING TO LEAVE AMA. THIS RN INFORMED THE PT OF HIS RIGHTS AND THAT IF HE WANTED TO LEAVE HE COULD LEAVE. PT THEN ASKED ABOUT GOING ON HOSPICE. PALLIATIVE CARE RN WAS CALLED AND CAME TO THE ROOM TO SPEAK WITH THE PT. PT HAS MADE MULTIPLE SEXUALLY INAPPROPRIATE COMMENTS TO THE FEMALE SITTER THIS AM. WILL CONTINUE TO MONITOR.
--- NOTE | 2023-07-18 12:46 | NUR ---
ASSUMED CARE OF PT WHILE PRIMARY RN TO LUNCH BREAK. PT HAS FAMILY AT BEDSIDE DISCUSSING CODE STATUS. HE IS CURRENTLY USING N/C. CALL LIGHT IN REACH AND ALL VSS. DENIES CURRENT NEEDS. SITTER IN DOORWAY.
--- NOTE | 2023-07-18 18:24 | NUR ---
SHIFT SUMMARY... NO ACUTE NEGATIVE CHANGES NOTED THIS SHIFT. PT'S VS STABLE PT HAS BEEN USING THE BIPAP OFF AND ON T/O THIS SHIFT. WHEN NOT ON BIPAP HE IS ON 4-6L NC. PT'S FAMILY HAS BEEN AT THE BEDSIDE OFF AND ON TODAY. PLANS TO D/C HOME ON HOSPICE ONCE HIS SISTER MAKES IT TO [facility] FROM [place]. CALL LIGHT IN REACH WILL CONTINUE TO MONITOR UNTIL REPORT IS GIVEN TO ONCOMING RN.
[2023-07-19 03:12] VITALS: BP 130/94
--- NOTE | 2023-07-19 07:25 | NUR ---
SHIFT SUMMARY PATIENT ALERT AND ORIENTED X3, 1 ASSIST WITH FWW TO THE RESTROOM. HAD NO COMPLAINTS OF PAIN OR SHORTNESS OF BREATH. PATIENT ONLY WORE HIS BIPAP FOR ABOUT HALF AN HOUR LAST NIGHT, CURRENTLY ON 7 LITERS OF O2 VIA NASAL CANULA. VITAL SIGNS STABLE. NO ACUTE ISSUES NOTED OVERNIGHT. WILL CONTINUE TO MONITOR. CALL LIGHT WITHIN REACH.
--- NOTE | 2023-07-19 07:54 | NUR ---
RECEIVED PHONE CALL FROM PT'S BROTHER AND TATE. THEY REPORT SPEAKING TO PT VIA PHONE AT [phone] AND PT WAS AUDIBLY DISTRAUGHT. THEIR CONCERN IS PT IS ACUTELY CONFUSED AND TALKING ABOUT, "I'M GOING TO GET OUT OF HERE. I'M LEAVING." BROTHER AND TATE ARE CURRENTLY TRAVELING FROM [place]. THEIR EXPECTED ETA IS Monday07/21/23. THEIR CONTACT INFORMATION IS CURRENT IN PT CHART. THIS PC RN SPOKE WITH PRIMARY RN, WHOM REPORTS S/P ATIVAN, IS RELAXED AND RESTING. THIS PC RN RELAYED UPDATE TO FAMILY. PALLIATIVE RNSASCHA TO FOLLOW UP WITH FAMILY LATER TODAY.
[2023-07-19 09:41] VITALS: BP 196/100
[2023-07-19 09:54] VITALS: BP 178/101
[2023-07-19 16:10] VITALS: BP 146/81
--- NOTE | 2023-07-19 18:29 | NUR ---
SHIFT SUMMARY PT IS LETHARGIC AT TIMES BUT WAKES TO VERBAL STIMULI. THIS AM PT APPEARED ANXIOUS, PRN ATIVAN GIVEN PER EMAR ORDERS AND PT HAS SINCE APPEARED TO REMAIN RELAXED. HE IS ORIENTED TO SELF, FAMILY, PLACE AND SITUATION. HE IS ABLE TO MAKE HIS NEEDS KNOWN AND IS IMPULSIVE AT TIMES, BED ALARM HAS BEEN IN USE T/O SHIFT. FAMILY HAS ALSO BEEN AT BEDSIDE. BP AND HR STABLE. SPO2 HAS BEEN MAINTAINED >95% VIA 5-7L NC OR BIPAP PT CAN TOLERATE WEARING MASK. HE HAS PROBABLY WORE BIPAP FOR A TOTAL OF 4 HOURS DURING SHIFT. HE HAS BEEN TEARFUL DURING SHIFT AND REPORTED FEAR OF DYING IN THE HOSPITAL. THERAPEUTIC COMMUNICAITON PROVIDED. HE HAS AMBULATED TO A 1 PERSON ASSIST W/ FWW DURING SHIFT. PT CURRENTLY APPEARS TO BE SLEEPING COMFORTALY WHILE WEARING BIPAP MASK. CALL LIGHT IS W/IN REACH, BED ALARM ON.
[2023-07-19 20:46] VITALS: BP 158/92
[2023-07-20 02:03] VITALS: BP 154/92
--- NOTE | 2023-07-20 03:09 | NUR ---
PATIENT ARRIVED TO ROOM 357 FROM PCU20. PATIENT ARRIVED ON HOSPITAL BED. HOSPITAL BEDS SWITCHED, PATIENT ABLE TO REMAIN IN BED. PATIENT ARRIVED WITH MEDICATION THAT IS SECURED IN LOCK BOX, PERSONAL BELONGINGS, CPAP/BIPAP, AND MOBILE THERAPIST.
[2023-07-20 03:13] VITALS: BP 135/85
--- NOTE | 2023-07-20 03:17 | NUR ---
TRANSFER PATIENT TRANSFERRED FROM PCU 20 TO MEDICAL FLOOR ROOM 357. REPORT GIVEN TO MARCEL ZHENG RN. PATIENT ALERT AND ORIENTED X3. DENIES ANY PAIN OR SHORTNESS OF BREATH. TRANSFERRED ON 7 LITERS O2 VIA NASAL CANULA.
--- NOTE | 2023-07-20 05:45 | NUR ---
SHIFT SUMMARY. PATIENT ALERT TO SELF. PATIENT IS VERY UNSTEADY AND WANTS TO STAND AT BEDSIDE TO USE COMMODE-PATIENT REQUIRING ASSISTANCE D/T UNSTEADY AND NEEDING ASSISTANCE WITH THE URINAL. PATIENT IS IMPULSIVE, PATIENT UP SEVERAL TIMES AT BEDSIDE, CONFUSED TO "WHERE AM I AT AND HOW DID I GET HERE?". PATIENT REORIENTED TO HOSPITAL AND EDUCATED ON WHAT THE MEDICAL EQUIPMENT IN THE ROOM IS AND WHY HE IS IN THE HOSPITAL. PATIENT SLEEPING ON AND OFF. PATIENT IS SATTING >92% ON 7 L'S OF OXYGEN-6 L'S VIA NASAL CANNULA IS PATIENT BASELINE. PATIENT ATTEMPTING TO REST AT THIS TIME. BED IS LOCKED IN THE LOWEST POSITION, BED EXIT ALARM ENGAGED FOR PATIENT SAFETY AND CALL LIGHT IS IN REACH. CARE IS ONGOING.
[2023-07-20 07:19] VITALS: BP 157/81
--- NOTE | 2023-07-20 11:58 | NUR ---
AGITATION PT AGITATED. PT MEDICATED WITH ATIVAN ORDERED. SEE EMAR. PALLIATIVE CARE NOTIFIED OF AGITATION.
[2023-07-20] MEDS ORDERED: Morphine Sulfate 20 MG/1ML 1 ML Oral Syringe SL PRN (13:55)
[2023-07-20] MEDS ORDERED: LORazepam 1 MG Tab PO PRN (14:00)
--- NOTE | 2023-07-20 14:00 | NUR ---
PT APPEARS TO BE LETHARGIC TODAY AFTER GIVEN LORAZEPAM DOSE OF 2MG. HOWEVER, PT REAWAKENS AFTER 2 HOURS TODAY AND QUICKLY BECOMES AGITATED. AFTER DISCUSSION WITH DR. MARTIN AND BEDSIDE RN, RECEIVED ORDERS TO TRY USING ROXANOL FIRST, TO SEE IF THE AGITATION IS RELATED TO AIR HUNGER WE SUSPECT IT MIGHT BE. PT'S ADULT NIECES AT BEDSIDE AND AGREE WITH THIS PLAN. WILL CONTINUE TO MONITOR PT, ASSIST WITH MEDICATION MANAGEMENT NEEDED.
[2023-07-20 16:57] VITALS: BP 142/81
--- NOTE | 2023-07-20 17:36 | NUR ---
1733- THIS RN CALLED DR. MARTIN AND NOTIFIED HIM OF PT'S GLUCOSE TODAY FOR ALL MEALS. GAVE VERBAL OVER THE PHONE TO DC CHEM BG'S AND DC ALL INSULIN. PT IS GOING HOME ON HOSPICE TOMORROW.
--- NOTE | 2023-07-20 18:02 | NUR ---
SUMMARY- PT AAOX1-2 THIS SHIFT TO SELF AND PERSON. PT HAS NOT EATEN ALL SHIFT DUE TO RISK OF ASPIRATION WELL REFUSING. PT IS TOO LETHARGIC TO EAT. PT HAS BEEN ON BIPAP MOST OF THE SHIFT EXCEPT FOR ABOUT TWO HOURS. OTHERWISE, PT IS ON 7L HF NC. PT HAS BEEN REQUIRING ATIVAN AND OR ROXANOL FOR AGGITATION/ANXIETY CONTROL EVERY 2 HOURS. 10 MG PO ATIVAN CRUSHED AND 10MG ROXANOL HAS BEEN HELPFUL SINCE THE NEW ORDER WAS PLACED BY PALLIATIVE CARE. FAMILY HAS BEEN AT BED SIDE ALMOST ALL SHIFT AND HAS BEEN HELPFUL WITH CARE. PT HAS BEEN CONTINENT ALL SHIFT-WAKING UP AND ASKING TO URINATE.
[2023-07-20 19:13] VITALS: BP 126/80
[2023-07-21 04:14] VITALS: BP 109/67
--- NOTE | 2023-07-21 05:11 | NUR ---
SHIFT SUMMARY. PATIENT A&OX1-2 WITH CONFUSION-PATIENT ABLE TO BE REORIENTED TO SITUATION AFTER A FEW MINUTES. . PATIENT ANXIOUS OFF AND ON T/O SHIFT-MEDICATED PER EMAR. PATIENT WORE BIPAP T/O NIGHT. PATIENT SLEPT OFF AND ON T/O NIGHT. ASSISTED PATIENT TO USE THE URINAL. PLAN FOR PATIENT IS TO DISCHARGE HOME ON HOSPICE. PATIENT IS ON CONTINUOUS PULSE OX SATTING >90% WITH BIPAP. BED IS LOCKED IN THE LOWEST POSITION WITH CALL LIGHT IN REACH. BED EXIT ALARM ENGAGED FOR SAFETY. CARE IS ONGOING.
[2023-07-21 07:24] VITALS: BP 122/76
--- NOTE | 2023-07-21 13:01 | NUR ---
DISCHARGE NOTE PT DISCHARGED HOME ON HOSPICE AT APPROX 12:15. PT ORIENTED TO SELF AND FAMILY, VSS, 7L O2 NC, VOIDING, AND WAS FREE FROM ANY S/SX OF DISTRESS AND OR PAIN. BELONGINGS WERE RETURNED AND DISCHARGE PACKET GIVEN TO TRANSPORT. PT TRANSPORTED OUT VIA GURNEY BY [facility].
== END 2023-07-21 12:23 | disposition hospice, home (50) | DRG 291 ==
LOC: ER 10:33 → ICUE 14:04 → PCU 14:04 → MEDS 14:04 → ICUE 14:35 → PCU 07-16 04:53 → MEDS 07-20 03:08 → ENPENDDIS 07-21 10:03 → MEDS 07-21 12:23
PROVIDERS: Family Medicine; Family Medicine Adult Medicine; Internal Medicine; Physician Assistant; ADMIT Internal Medicine
PROC: 5A09357 Assistance with Respiratory Ventilation, Less than 24 Consecutive Hours, Continuous Positive Airway Pressure (ICD-10-PCS; principal; 2023-07-15)
DX: I13.0 Hypertensive heart and chronic kidney disease with heart failure and stage 1 through stage 4 chronic kidney disease, or unspecified chronic kidney disease (principal); I50.33 Acute on chronic diastolic (congestive) heart failure; J96.21 Acute and chronic respiratory failure with hypoxia; J96.22 Acute and chronic respiratory failure with hypercapnia; J44.1 Chronic obstructive pulmonary disease with (acute) exacerbation; N18.31 Chronic kidney disease, stage 3a; E78.5 Hyperlipidemia, unspecified; F41.9 Anxiety disorder, unspecified; F32.A Depression, unspecified; E11.22 Type 2 diabetes mellitus with diabetic chronic kidney disease; Z86.718 Personal history of other venous thrombosis and embolism; Z86.711 Personal history of pulmonary embolism; Z98.890 Other specified postprocedural states; Z90.49 Acquired absence of other specified parts of digestive tract; Z90.5 Acquired absence of kidney; Z88.8 Allergy status to other drugs, medicaments and biological substances; Z88.5 Allergy status to narcotic agent; Z79.51 Long term (current) use of inhaled steroids; Z79.82 Long term (current) use of aspirin; Z79.01 Long term (current) use of anticoagulants; Z79.4 Long term (current) use of insulin; Z79.899 Other long term (current) drug therapy
CPT/HCPCS: 36415; 36600; 71045; 80053; 80069; 82803; 82947; 83735; 83880; 84484; 85025; 93005; 93010; 94640; 94644; 94660; 94664; 94762; 96374; 96375; 99285-25; A9270; C1751; J0696; J1650; J1815; J1940; J2060; J2919